=== PATIENT | female | born 1955 | race Caucasian/White ===

== ENCOUNTER → 2020-02-03 17:12 | Outpatient (CLI) | payer OTHER, SELFPAY ==
--- NOTE | ~2020-02-03 | MM_ITS ---
EXAMINATION: MM screening [facility] BI w madiha HISTORY: Screening mammogram TECHNIQUE: Craniocaudal and mediolateral oblique 3-D tomosynthesis images were obtained and synthetic 2-D images were generated. CAD analysis was submitted and interpreted. COMPARISON: 10/21/2018, 05/18/2017, 05/07/2016 bilateral digital screening mammogram examinations BREAST PARENCHYMAL COMPOSITION: There are scattered areas of fibroglandular density. FINDINGS: Stable circumscribed opacities consistent with benign intramammary lymph nodes on the left. There is no evidence of suspicious mass, calcification, or architectural distortion to suggest malig mikaela in either breast. There has been no suspicious interval change. IMPRESSION: 1. No mammographic evidence of malignancy. 2. Recommend routine screening mammography in one year. BI-RADS Category 2: Benign finding(s). Reviewed, dictated and finalized at location A. NERY SUPERINTENDENT
== END ==
PROVIDERS: Visit Provider Obstetrics & Gynecology
DX: Z12.31 Encounter for screening mammogram for malignant neoplasm of breast (principal)
CPT/HCPCS: 77063; 77067

== ENCOUNTER → 2021-04-28 11:17 | Outpatient (CLI) | payer OTHER, SELFPAY ==
--- NOTE | ~2021-04-28 | MM_ITS ---
EXAMINATION: MM screening [facility]i BI w madiha HISTORY: Screening mammogram TECHNIQUE: Craniocaudal and mediolateral oblique 3-D tomosynthesis images were obtained and synthetic 2-D images were generated. CAD analysis was submitted and interpreted. COMPARISON: 02/03/2020, 10/21/2018, 05/18/2017 bilateral screening mammogram examinations BREAST PARENCHYMAL COMPOSITION: There are scattered areas of fibroglandular density. FINDINGS: There is no evidence of suspicious mass, calcification, or architectural distortion to sugg est malignancy in either breast. There has been no suspicious interval change. IMPRESSION: 1. No mammographic evidence of malignancy. 2. Recommend routine screening mammography in one year. BI-RADS Category 1: Negative Reviewed, dictated and finalized at location A. D INSURANCE SALES MANAGER
== END ==
PROVIDERS: PCP Internal Medicine; Visit Provider Nurse Practitioner Obstetrics & Gynecology
DX: Z12.31 Encounter for screening mammogram for malignant neoplasm of breast (principal)
CPT/HCPCS: 77063; 77067

== ENCOUNTER → 2021-06-05 11:37 | Outpatient (CLI) | payer SELFPAY ==
--- NOTE | ~2021-06-05 | DEXA_ITS ---
Bone Density Report Name: PRABHU AHN Age: 65 Sex: Female Ethnicity: White Date of : 1955 Indication: osteopenia; monitoring treatment; hysterectomy; postmenopausal Referring Provider: Ashley, Val Hays Study: Bone densitometry was performed. Exam Date: June 05, 2021 Accession number: [id number] Bone Density: Region BMD T-score Z-score Classification AP Spine (L1-L4) 0.903 -1.3 0.4 Osteopenia Femoral Neck (Left) 0.571 -2.5 -1.0 Osteoporosis Total Hip (Left) 0.702 -2.0 -0.8 Osteopenia Femoral Neck (Right) 0.570 -2.5 -1.0 Osteoporosis Total Hip (Right) 0.713 -1.9 -0.7 Osteopenia Total Hip Mean 0.708 -2.0 -0.8 Osteopenia World Health Organization criteria for BMD impression classify patients as: Normal (T-score at or above -1.0), Osteopenia (T-score between -1.0 and -2.5), or Osteoporosis (T-score at or below -2.5). 10-year Fracture Risk: FRAX not reported because: Some T-score for Spine Total or Hip Total or Femoral Neck at or below -2.5 Treated for osteoporosis Previous Exams: Region Exam Age BMD T-score BMD Change BMD Change Date g/cm2 vs Baseline vs Previous AP Spine(L1-L4) 06/05/2021 65 0.903 -1.3 0.087* 0.105* 05/18/2017 61 0.798 -2.3 -0.017 -0.012 03/17/2013 57 0.810 -2.2 -0.006 -0.006 03/16/2011 55 0.816 -2.1 Total Hip(Left) 06/05/2021 65 0.702 -2.0 -0.005 0.020 05/18/2017 61 0.682 -2.1 -0.025 -0.005 03/17/2013 57 0.687 -2.1 -0.020 -0.020 03/16/2011 55 0.707 -1.9 Total Hip(Right) 06/05/2021 65 0.713 -1.9 -0.009 0.030* 05/18/2017 61 0.682 -2.1 -0.040* -0.003 03/17/2013 57 0.686 -2.1 -0.037* -0.037* 03/16/2011 55 0.722 -1.8 *Denotes significance at 95% confidence level, LSC for AP Spine = 0.022 g/cm2, LSC for Total Hip = 0.027 g/cm2 Clinical Information Provided by Patient: Is being treated for osteoporosis Has used the following medications: Actonel (i.e. risedronate), MTV Has the following medical conditions: Hysterectomy Patient maximum height was 65.0 Menopause Age: 31 No regular weight bearing exercise Does not regularly consume dairy products Drinks caffeinated beverages Onset of menses at age 14 Number of children 2 Impression: The patient has osteoporosis, based on the Left Femoral Neck T-score. No si
== END ==
PROVIDERS: PCP Internal Medicine; Visit Provider Nurse Practitioner Obstetrics & Gynecology
DX: M81.0 Age-related osteoporosis without current pathological fracture (principal); M85.852 Other specified disorders of bone density and structure, left thigh; M85.851 Other specified disorders of bone density and structure, right thigh; M85.88 Other specified disorders of bone density and structure, other site
CPT/HCPCS: 77080

== ENCOUNTER → 2022-07-18 13:44 | Outpatient (CLI) | payer OTHER, SELFPAY ==
--- NOTE | ~2022-07-18 | MM_ITS ---
EXAMINATION: MM screening [facility] BI w madiha HISTORY: Screening mammogram TECHNIQUE: Craniocaudal and mediolateral oblique 3-D tomosynthesis images were obtained and synthetic 2-D images were generated. CAD analysis was submitted and interpreted. COMPARISON: 04/28/2021, 02/03/2020, 10/21/2018 BREAST PARENCHYMAL COMPOSITION: There are scattered areas of fibroglandular density. FINDINGS: No suspicious mass, calcification, or architectural distortion are identified in either erwin ast to suggest malignancy. There has been no suspicious interval change. IMPRESSION: 1. No mammographic evidence of malignancy. 2. Recommend routine screening mammography in one year. BI-RADS Category 1: Negative Reviewed, dictated and finalized at location A.
== END ==
PROVIDERS: PCP Nurse Practitioner; Visit Provider Nurse Practitioner
DX: Z12.31 Encounter for screening mammogram for malignant neoplasm of breast (principal)
CPT/HCPCS: 77063; 77067

== ENCOUNTER 2022-09-07 13:14 | Emergency (ER) | payer OTHER, SELFPAY ==
[2022-09-07] VITALS (31 sets, daily range): BP systolic 149–185; BP diastolic 72–118; PULSE 83–115; RESP 14–26; TEMP 36.8; O2SAT 93–100
--- NOTE | ~2022-09-07 | CT_ITS ---
EXAMINATION: CT brain wo con DATE: 09/07/2022 16:26 INDICATION: Hypertension, lightheadedness . TECHNIQUE: Computed tomography (CT) of the head was performed without intravenous contrast. The mA wa s adjusted according to patient size. Iterative reconstruction technique was employed. The dose-lengt h product was 681.00 mGy-cm. COMPARISON: None. FINDINGS: No acute intracranial hemorrhage or extra-axial fluid collection. No hydrocephalus, mass, or herniation. No acute ischemic infarct. Unremarkable dural venous sinus attenuation. No acute osseous abnormality. Retention cyst/polyp in the right maxillary sinus, the remaining aerated spaces are clear. Mild atrophy and chronic white matter change. Atherosclerotic intracranial calcification. IMPRESSION: No acute intracranial process. Reviewed, dictated and finalized at location K.
--- NOTE | ~2022-09-07 | XR_ITS ---
EXAMINATION: XR chest 1V portable DATE: 09/07/2022 15:43 INDICATION: Hypertension. TECHNIQUE: A single frontal view of the chest was obtained. COMPARISON: None. FINDINGS: A calcified right lung nodule and calcified right hilar lymph nodes are consistent with old granulomatous disease. There is mild atelectasis in left lower lung zone. No pleural effusion or pne umothorax. The heart size is normal. IMPRESSION: 1. Mild atelectasis in left lower lung zone. Reviewed, dictated and finalized at location A.
--- NOTE | 2022-09-07 15:54 | ED.GENADULT ---
HPI - General Adult General Chief complaint: Recheck/Abnormal Lab/Rx Stated complaint: high blood pressure Time Seen by Provider: 09/07/22 15:11 History of Present Illness HPI narrative: 66-year-old female with history of hypertension presented the emergency department for evaluation of elevated blood pressure. Patient states that she did have follow-up with her primary care physician recently and they told her that her blood pressure was elevated. They did not make any medication changes at that time. Patient does take amlodipine valsartan . Patient reports that she has been intermittently checking her blood pressure and states that it often runs in the 120s to 130s but also was 150 systolic the other day. Patient reports that she does have some increased fogginess today but denies any chest pain shortness of breath nausea vomiting or abdominal pain. Related Data Allergies Allergy/AdvReac Type Severity Reaction Status Date / Time No Known Allergies Allergy Verified 08/30/22 09:35 Review of Systems Review of Systems: All systems reviewed & are unremarkable except as noted in HPI and below PMFSH Family History Family History (System 08/29/22 @ 11:24 by Ernie Antoine) Father Hypertension Family history of coronary artery disease Mother Hypertension Other Diabetes mellitus Social History Social History (Updated 08/30/22 @ 09:38 by Yennifer Lopez MA) Smoking packs per day: 0.75 Smoking cigarettes per day: 15.0 Years smoked: 10 Smoking pack-years: 7.50 Smoking status: Former smoker Tobacco type: cigarettes Second hand tobacco smoke exposure: No Alcohol intake: current Drinks per week: 10 Substance use: never Lack of Transportation: No Lack of Food: Never True Current Housing: I Have Housing Concerned About Future Housing: No Difficulty Paying Gas/Electric Bills: No Difficulty Paying for Meds: No Currently Unemployed: No Education: High School Diploma/GED Difficulty w/ Childcare or Family Care: No Exam Narrative: APPEARANCE: Well appearing, no pain, no distress, well-nourished. HEAD: normocephalic, atraumatic. EYES: PERRLA/EOMI, conjunctivae clear. NOSE: Normal no drainage NECK: Supple. No adenopathy, no masses. RESPIRATORY: Airway patent, respirations nonlabored. Clear to auscultation bilaterally, no rales, rhonchi, wheezing. CARDIOVASCULAR: Regular rate and rhythm without murmurs rubs or gallops. ABDOMINAL: Soft, nontender, nondistended, normal bowel sounds MUSCULOSKELETAL: Moves all extremities. Strength/ROM intact, No edema, No calf tenderness. NEURO: Alert. Cranial nerves II through XII intact. Grossly intact SKIN: Warm, dry. Normal Color Course Course Emergency Course: 66-year-old female presented ED for evaluation of elevated blood pressure. Patient was having elevated blood pressures at home of 190 systolic. Patient's blood pressure was better controlled in the ED. Patient states that she does have blood pressures that run in the 150s at home. Patient was encouraged to follow a low-sodium diet and to monitor blood pressures at home. Patient was also encouraged of close follow-up with her primary care physician to see if they want to further adjust her blood pressure medications. Patient was afebrile with no leukocytosis and a normal hemoglobin. Patient's electrolytes were within normal limits UA showed no evidence of proteinuria. Patient had negative head CT and a chest x-ray that showed no acute cardiopulmonary normality. EKG showed no evidence of ischemia. Vital Signs Vital signs: Vital Signs Temperature 98.3 F 09/07/22 13:21 Pulse Rate 115 H 09/07/22 13:21 Respiratory Rate 18 09/07/22 13:21 Blood Pressure 156/118 H 09/07/22 13:21 Pulse Oximetry 100 09/07/22 13:21 Oxygen Delivery Room Air 09/07/22 13:21 Temperature 98.3 F 09/07/22 13:21 Pulse Rate 87 09/07/22 17:45 Respiratory Rate 23 H 09/07/22 17:45 Blo
[2022-09-07] MEDS: hydrALAZINE HCL 20 MG/ML VIAL 10 MG IV PUSH (16:03)
[2022-09-07] MEDS: LORazepam INJ (*CRX) 2 MG/ML VIAL 0.5 MG IV PUSH (16:03)
[2022-09-07 16:11] LABS: Appearance Urine Clear (Clear); Bilirubin Urine Negative (Negative); Blood Urine Negative (Negative); Color Urine Yellow (Yellow); Glucose Urine UA Negative (Negative); Ketones Urine Negative (Negative); Leukocyte Esterase Ur Negative LEU/UL (Negative); Nitrate Urine Negative (Negative); Protein Urine Negative (Negative); Specific Grav Ur 1.004 (1.001-1.035); Urobilinogen Urine 0.2 mg/dL (<2.0)
[2022-09-07 16:21] LABS: Add Urine Microscopic? NO
[2022-09-07 16:23] LABS: Basophils Absolute Auto 0.1 K/mm3 (0.0-0.1); Basophils Percent Auto 1.1 % (0.2-1.2); Eosinophils Percent Auto 0.1 % (0-4.4); Hematocrit 37.3 % (37.0-47.0); Hemoglobin 12.5 g/dL (12.0-15.0); Immature Granulocyte Absolute 0.02 K/mm3 (0.00-0.031); Immature Granulocyte Percent A 0.3 % (0-0.5); Lymphocytes Absolute Auto 1.27 K/mm3 (0.9-3.2); Lymphocytes Percent Auto 16.9 % (18.3-44.2); Mean Corpuscular HGB Conc 33.5 g/dl (32-36); Mean Corpuscular Hemoglobin 29.9 pg (26-34); Mean Corpuscular Volume 89.2 fl (80-100); Mean Platelet Volume 9.3 fl (7.4-10.4); Monocytes Absolute Auto 0.8 K/mm3 (0.1-0.6); Monocytes Percent Auto 10.4 % (2.6-8.5); Neutrophils Absolute Auto 5.4 K/mm3 (1.3-6.7); Neutrophils Percent Auto 71.2 % (45.5-73.1); Platelet Count Result 381 k/mm3 (150-375); Red Blood Count 4.18 M/mm3 (4.2-5.4); Red Cell Distribution Width 16.5 % (11.5-14.5); White Blood Count 7.5 K/mm3 (4.5-10.0)
[2022-09-07 16:33] LABS: Alanine Aminotransferase 136 U/L (6-35); Albumin Level 5.2 g/dL (3.5-5.1); Alkaline Phosphatase 112 U/L (38-126); Anion Gap 9 mmol/L (8-16); Aspartate Amino Transferase 126 U/L (14-36); Bilirubin,Total 0.9 mg/dL (0.2-1.3); Blood Urea Nitrogen 8 mg/dL (7-17); Calcium 9.8 mg/dL (8.4-10.2); Carbon Dioxide 32 mmol/L (22-30); Chloride 97 mmol/L (98-107); Estimated CRCL calculation 102 ml/min; Estimated Glomerular Filt Rate > 60; Glucose 114 mg/dL (65-110); Magnesium 1.5 mg/dL (1.6-2.3); Potassium 3.4 mmol/L (3.4-5.0); Sodium 138 mmol/L (137-145)
[2022-09-07] MEDS: METOPROLOL TARTRATE INJ 5 MG/5 ML VIAL IV PUSH (16:42)
== END 2022-09-07 17:59 | disposition home or self-care (01) ==
PROVIDERS: Emergency Provider Emergency Medicine; PCP Family Medicine
DX: I10 Essential (primary) hypertension (principal); Z87.891 Personal history of nicotine dependence
CPT/HCPCS: 36415; 70450; 71045; 80053; 81003; 83735; 84443; 85025; 96374; 96375; 99284; J0360; J2060

== ENCOUNTER 2023-05-28 08:38 | Outpatient (CLI) | payer OTHER, SELFPAY ==
--- NOTE | ~2023-05-28 | XR_ITS ---
EXAMINATION: XR thoracic spine 2V DATE: 05/28/2023 09:21 INDICATION: Thoracic back pain TECHNIQUE: AP, lateral and lateral swimmer's views of the thoracic spine were obtained. COMPARISON: None. FINDINGS: There are 11 degrees of lower thoracic levoscoliosis. Bone alignment is normal. There is no fracture. There is moderate loss of intervertebral disc space height at multiple levels in the thora cic spine. The vertebral body heights are maintained. There is severe mid cervical spondylosis. Small degenerative osteophytes project from the anterior endplates of multiple vertebral bodies. IMPRESSION: 1. Moderate thoracic spondylosis without acute findings. Reviewed, dictated and finalized at location F.
--- NOTE | ~2023-05-28 | XR_ITS ---
XR_CERV2-3V_CR 05/28/2023 09:21 Indication: Cervicalgia Procedure: 3 views cervical spine Comparison: 04/24/2006 Findings: Straightening of cervical lordosis. There is disc narrowing and endplate degenerative juan e at C4-5, C5-6 and C6-7. There is multilevel uncinate and facet hypertrophy. Odontoid process is nor mal. No prevertebral soft tissue swelling. Lung apices are normal. Impression: 1: Severe cervical spondylosis. Reviewed, dictated and finalized at location L. Impression: 1: Severe cervical spondylosis.
--- NOTE | ~2023-05-28 | XR_ITS ---
XR lumbar spine 2-3V 05/28/2023 09:21 Indication: Low back pain Procedure: 3 views lumbar spine Comparison: No prior studies for comparison. Findings: Mild dextrocurvature of the lumbar spine. There is disc narrowing at all lumbar levels. The re is facet hypertrophy at L4-5 and L5-S1. No fracture or traumatic malalignment. No evidence for spo ndylolisthesis. Impression: 1: Severe lumbar spondylosis. Reviewed, dictated and finalized at location L. Impression: 1: Severe lumbar spondylosis.
== END 2023-05-28 08:39 ==
PROVIDERS: PCP Nurse Practitioner Family; Visit Provider Nurse Practitioner Family
DX: M43.04 Spondylolysis, thoracic region (principal); M43.02 Spondylolysis, cervical region; M43.06 Spondylolysis, lumbar region
CPT/HCPCS: 72040; 72070; 72100

== ENCOUNTER 2023-07-18 09:30 | Outpatient (RCR) | payer OTHER, SELFPAY ==
--- NOTE | 2023-06-21 12:02 | OPREHPOC ---
Outpatient Therapy Plan of Care This is a Multidisciplinary Plan of Care that may contain components documented by all disciplines (PT, OT, and ST.) PT Problem 1 PT Problem #1 Knowledge Deficit PT Goal 1 Goal *indep with HEP Target Visit 8 PT Problem 2 PT Problem #2 Pain PT Goal 1 Goal 1* cervical pain rating at worst of 3/10 2* report NO awakening from sleep due to neck pain 3* self rating Neck Disability Index score of 5% limitation in activity level Target Visit 8 PT Problem 3 PT Problem #3 Impaired Range of Motion PT Goal 1 Goal increase ROM to improve ability to drive and home /self care activities 1* active cervical rotation R 55' 2* active cervical rotation L 55' no pain increase reported with 3 reps active 3* cervical rotation R 4* cervical rotation L 5* L shoulder flexion to 90' 6* L shoulder abduction to 90' Target Visit 8
--- NOTE | 2023-06-21 12:02 | PTOPEVAL1 ---
Assessment and note entered by Allison Mejia PT Evaluation Information Assessment Status Evaluation Diagnosis cervical and lumbar pain Onset Mar 2023 Subjective Information orders for cervical and lumbar treatment--pt reports more issues with neck, so will begin with cervical treatment; gradual increase in neck pain, without injury or trauma to neck; more issues with sleeping and driving; problems with L shoulder; is R handed. x ray report states: severe cervical spondylosis have never had PT in the past; Activity: retired; active--do home and yard work do not do regular fitness exercises; prior to COVID-- did regular fitness classes and hot yoga; hopes to get better and return to yoga and fitness exercises; Reported Pain Level Pain Score Self Report Additional Pain Score Comments pain range in the past week: 3-5/10; tight in neck, base of neck, upper back; neck pops and cracks when move head; pain in L shoulder with decreased motion and pain with moving; intermittent both elbows hurt/ tingle or on fire; intermittent pain behind L ear; no headaches; pain increase: walking dog and dog pulls; turning head with driving; pain decrease: new script for gabapentin, is helping; have not been using heat/ice to neck- instruct on PRN use; with sleeping- awaken due to pain at least 1x/ night; Assessment PT Clinical Summary Janeen has the diagnosis of cervical and lumbar pain. She wants to start treatment on her neck. Neck Disability Index rating of 10% limitation in activity--turning her head, sleeping and walking the dog are most disrupted. She also has L shoulder pain. With the evaluation: decreased cervical rotation to R and L with pain, muscle spasms and tenderness throughout cervical and upper traps; L shoulder with pain and decreased
--- NOTE | 2023-07-18 11:11 | OPREHPOC ---
Outpatient Therapy Plan of Care This is a Multidisciplinary Plan of Care that may contain components documented by all disciplines (PT, OT, and ST.) PT Problem 1 PT Problem #1 Knowledge Deficit PT Goal 1 Goal *indep with HEP Target Visit 8 Progress Met PT Problem 2 PT Problem #2 Pain PT Goal 1 Goal 1* cervical pain rating at worst of 3/10 2* report NO awakening from sleep due to neck pain 3* self rating Neck Disability Index score of 5% limitation in activity level Target Visit 8 Progress Met PT Problem 3 PT Problem #3 Impaired Range of Motion PT Goal 1 Goal increase ROM to improve ability to drive and home /self care activities 1* active cervical rotation R 55' 2* active cervical rotation L 55' no pain increase reported with 3 reps active 3* cervical rotation R 4* cervical rotation L 5* L shoulder flexion to 90' 6* L shoulder abduction to 90' Target Visit 8 Progress Partially Met
--- NOTE | 2023-07-18 11:11 | PTOPDC ---
Assessment and note entered by Hadley Vera, PT Evaluation Information Assessment Status Discharge Diagnosis cervical and lumbar pain Onset Mar 2023 Subjective Information Patient reports that overall she is a lot better since she started, especially in her cervical spine and shoulders. Reports that her back and hips are still a little sore but feels she has a better understanding of what she needs to do to continue to improve his as part of HEP. Would like to be discharged at this time. Reported Pain Level Pain Score 3: Self Report Assessment PT Clinical Summary Patient met all current goals for therapy. She is independent with HEP and will benefit from continuation of HEP to address remaining deficits. Plan of Care PT Services Indicated D/c to HEP
== END 2023-07-19 11:54 | disposition home or self-care (01) ==
LOC: ANHPT 09:30
PROVIDERS: PCP Nurse Practitioner Family; Visit Provider Nurse Practitioner Family
DX: M47.812 Spondylosis without myelopathy or radiculopathy, cervical region (principal); M47.816 Spondylosis without myelopathy or radiculopathy, lumbar region
CPT/HCPCS: 97014; 97110; 97140; 97162; 97530; G0283

== ENCOUNTER 2023-10-24 15:26 | Outpatient (CLI) | payer OTHER, SELFPAY ==
--- NOTE | ~2023-10-24 | MM_ITS ---
EXAMINATION: MM screening franci BI w madiha HISTORY: Screening TECHNIQUE: Craniocaudal and mediolateral oblique 3-D tomosynthesis images were obtained and synthetic 2-D images were generated. CAD analysis was submitted and interpreted. COMPARISON: Comparison to multiple prior studies sequentially, with oldest reviewed study dated 08/2016. BREAST PARENCHYMAL COMPOSITION: Not dense: There are scattered areas of fibroglandular density. FINDINGS: There is no evidence of suspicious mass, calcification, or architectural distortion to sugg est malignancy in either breast. There has been no suspicious interval change. IMPRESSION: 1. No mammographic evidence of malignancy. 2. Recommend routine screening mammography in one year. BI-RADS Category 1: Negative Reviewed, dictated and finalized at location B.
== END 2023-10-24 15:27 ==
LOC: MICIMG 15:27
PROVIDERS: PCP Nurse Practitioner Family; Visit Provider Nurse Practitioner Family
DX: Z12.31 Encounter for screening mammogram for malignant neoplasm of breast (principal)
CPT/HCPCS: 77063; 77067

== ENCOUNTER 2023-12-09 00:21 | Day surgery (SDC) | payer OTHER, SELFPAY ==
[2023-11-27 14:57] VITALS: BMI 24.2
[2023-12-09 13:36] VITALS: BP 172/87; PULSE 83; RESP 20; TEMP 36.1; O2SAT 100; BMI 22.0
[2023-12-09] MEDS: LACTATED RINGERS 1,000 ML 150 ML IV CONT (13:47)
--- NOTE | 2023-12-09 14:02 | WPDANESEPPF ---
Anes - Initial Pre Proc Eval Procedure: Operation Date: 12/09/23 15:00 Proposed Procedures p Esophagogastroduodenoscopy - Charles Botello MD Date/Time: 12/09/23 14:02 Surgeon: Charles Botello MD Pre Op Diagnosis: Melena Patient Data Age: 68 Gender: F Height: 1.65 m Weight: 60.1 kg Last Vital Signs Temp 36.1 C L 12/09/23 13:36 Pulse 83 12/09/23 13:36 Resp 20 12/09/23 13:36 BP 172/87 H 12/09/23 13:36 Pulse Ox 100 12/09/23 13:36 O2 Del Method Room Air 12/09/23 13:36 Allergies Allergy/AdvReac Type Severity Reaction Status Date / Time No Known Allergies Allergy Verified 12/09/23 13:34 Home Medications Medication Instructions Recorded Confirmed Type gabapentin 300 mg capsule 300 mg PO DAILY PRN Pain 11/27/23 12/09/23 History amlodipine 10 mg-valsartan 320 mg See Rx Instructions .Route 11/28/23 12/09/23 Rx tablet .COMPLEX #90 tabs Patient hx anesthesia problems: none Family hx anesthesia problems: none Results Review: All pre-operative results and documents have been reviewed as part of the pre-operative evaluation. [facility] Past Medical History Medical History Cervicalgia Contact dermatitis Elevated liver enzymes Essential (primary) hypertension Hyperlipidemia Impaired glucose tolerance Lumbago On local intermodal truck driver drug therapy Osteoporosis Screening mammogram for breast cancer Swelling of joint of multiple sites Family History Family History Father Hypertension Family history of coronary artery disease Mother Hypertension Other Diabetes mellitus Social History Social History (Updated 12/09/23 @ 14:02 by Eric Mccullough MD) Smoking packs per day: 0.75 Smoking cigarettes per day: 15.0 Years smoked: 10 Smoking pack-years: 7.50 Smoking status: Former smoker Tobacco type: cigarettes Second hand tobacco smoke exposure: No Alcohol intake: current Drinks per week: 7 Alcohol use details: Glass of wine nightly Substance use: never Substance use type: does not use Lack of Transportation: No Lack of Food: Never True Current Housing: I Have Housing Concerned About Future Housing: No Difficulty Paying Gas/Electric Bills: No Difficulty Paying for Meds: No Currently Unemployed: No Education: High School Diploma/GED Difficulty w/ Childcare or Family Care: No Living arrangements: alone Spiritual care concerns: No Anes - Eval Final PreProcedure Day of Procedure 12/09/23 14:02 Patient weight: normal Heart: regular rate and rhythm Lungs: clear to auscultation Airway: Mallampati scale class II Neurological: alert and oriented Last oral intake: >/= 8 hours ASA classification: II Emergent: no Anesthetic plan: proceed Anesthesia type and monitoring: general GIVS and standard monitoring Results Review: All pre-operative results and documents have been reviewed as part of the pre-operative evaluation. Informed Consent: The patient's anesthetic plan and its attendant risks and benefits were discussed with the patient/family/POA. Questions were solicited and answers provided to the satisfaction of the patient/family/POA.
--- NOTE | 2023-12-09 14:40 | PM.HPGS ---
History of Present Illness History of Present Illness Consent: Risks, benefits, and alternatives have been discussed and questions answered. Patient agrees to proceed with procedure. Chief complaint: Melena Narrative: Amy Perry is a 68 year old female with dark stools and mild epigastric pain, never had egd. Recent h/h normal. Review of Systems Review of Systems: All systems reviewed & are unremarkable except as noted in HPI and below PMFSH Past Medical History Medical History Cervicalgia Contact dermatitis Elevated liver enzymes Essential (primary) hypertension Hyperlipidemia Impaired glucose tolerance Lumbago On half-way drug therapy Osteoporosis Screening mammogram for breast cancer Swelling of joint of multiple sites Family History Family History Father Hypertension Family history of coronary artery disease Mother Hypertension Other Diabetes mellitus Social History Social History (Updated 12/09/23 @ 14:02 by Eric Mccullough MD) Smoking packs per day: 0.75 Smoking cigarettes per day: 15.0 Years smoked: 10 Smoking pack-years: 7.50 Smoking status: Former smoker Tobacco type: cigarettes Second hand tobacco smoke exposure: No Alcohol intake: current Drinks per week: 7 Alcohol use details: Glass of wine nightly Substance use: never Substance use type: does not use Lack of Transportation: No Lack of Food: Never True Current Housing: I Have Housing Concerned About Future Housing: No Difficulty Paying Gas/Electric Bills: No Difficulty Paying for Meds: No Currently Unemployed: No Education: High School Diploma/GED Difficulty w/ Childcare or Family Care: No Living arrangements: alone Spiritual care concerns: No Meds Home Medications and Allergies Home Medications Medication Instructions Recorded Confirmed Type gabapentin 300 mg capsule 300 mg PO DAILY PRN Pain 11/27/23 12/09/23 History amlodipine 10 mg-valsartan 320 mg See Rx Instructions .Route 11/28/23 12/09/23 Rx tablet .COMPLEX #90 tabs Allergies Allergy/AdvReac Type Severity Reaction Status Date / Time No Known Allergies Allergy Verified 12/09/23 13:34 Vital Signs Vital Signs - 24 hr 12/09/23 13:36 Temperature 97 F L Pulse Rate 83 Respiratory Rate 20 Blood Pressure 172/87 H Pulse Oximetry 100 Oxygen Delivery Room Air Exam Const: General: comfortable and no acute distress HENMT: Face/Nose/Sinus: Normal nares present Eyes: General: appearance normal, both eyes and all related structures Neck: Neck: no JVD Resp: Auscultation: clear to auscultation bilaterally Cardio: Rate: regular rate Rhythm: regular rhythm GI: Inspection: non-distended GI Palp: Yes Soft to palpation Skin: General skin exam: normal color Neuro: General: gait normal Speech: normal speech Extrem: General: normal to inspection Psych: Mental Status: mental status grossly normal Assessment and Plan Assessment and plan (1) Black tarry stools: Code(s): K92.1 - Melena Status: Acute Assessment and Plan: egd
[2023-12-09 14:53] VITALS: BP 122/74; PULSE 94; RESP 19; O2SAT 100
[2023-12-09 15:03] VITALS: BP 130/73; PULSE 78; RESP 19; O2SAT 100
[2023-12-09 15:13] VITALS: BP 141/76; PULSE 76; RESP 18; O2SAT 100
== END 2023-12-09 15:25 | disposition home or self-care (01) ==
PROVIDERS: PCP Nurse Practitioner Family; Referring Provider Nurse Practitioner Family; Visit Provider Internal Medicine Gastroenterology
PROC: 0DJ08ZZ Inspection of Upper Intestinal Tract, Via Natural or Artificial Opening Endoscopic (ICD-10-PCS; CPT 43235; principal; 2023-12-09 15:00)
DX: R10.13 Epigastric pain (principal); K92.1 Melena; I10 Essential (primary) hypertension; E78.5 Hyperlipidemia, unspecified; R73.02 Impaired glucose tolerance (oral); M81.0 Age-related osteoporosis without current pathological fracture; Z79.899 Other long term (current) drug therapy; Z87.891 Personal history of nicotine dependence; Z82.49 Family history of ischemic heart disease and other diseases of the circulatory system
CPT/HCPCS: 43239; 88305; J2003; J2704; J7120

== ENCOUNTER 2024-04-17 13:22 | Outpatient (CLI) | payer OTHER, SELFPAY ==
--- NOTE | ~2024-04-17 | DEXA_ITS ---
Bone Density Report Name: PRABHU AHN Age: 68 Sex: Female Ethnicity: White Date of : 1955 Indication: postmenopausal; screening for osteoporosis; hysterectomy; Referring Provider: YT TEAGUE Study: Bone densitometry was performed. Exam Date: April 17, 2024 Accession number: [id number] Bone Density: Region BMD T-score Z-score Classification AP Spine(L1-L4) 0.922 -1.1 0.8 Osteopenia Femoral Neck (Left) 0.580 -2.4 -0.8 Osteopenia Total Hip (Left) 0.722 -1.8 -0.4 Osteopenia Femoral Neck (Right) 0.576 -2.5 -0.8 Osteoporosis Total Hip (Right) 0.716 -1.9 -0.5 Osteopenia Total Hip Mean 0.719 -1.9 -0.5 Osteopenia World Health Organization criteria for BMD impression classify patients as: Normal (T-score at or above -1.0), Osteopenia (T-score between -1.0 and -2.5), or Osteoporosis (T-score at or below -2.5). 10-year Fracture Risk: FRAX not reported because: Some T-score for Spine Total or Hip Total or Femoral Neck at or below -2.5 Clinical Information Provided by Patient: Has used the following medications: Vitamin D, Calcium Has the following medical conditions: Hysterectomy Patient maximum height was 66 Menopause Age: 31 Drinks caffeinated beverages Onset of menses at age 14 Number of children 2 Impression: The patient has osteoporosis, based on the Right Femoral Neck T-score. Discussion: INCREASED RISK OF FRACTURE. BONE DENSITY IS UNDESIRABLY LOW AT ONE OR MORE SKELETAL SITES, CONSISTENT WITH POSTMENOPAUSAL OSTEOPOROSIS. This patient's lowest T-score meets the World Health Organization's (WHO) criteria for osteoporosis at one or more sites (T-score -2.5 or below). In untreated patients, the risk of osteoporotic fracture increases approximately two-fold for each 1.0 SD decrease in T-score. Low bone density is not the only risk factor for fracture; also consider factors such as patient's age, frailty or poor health, risk of falling, risk of injury, previous osteoporotic fracture, family history of osteoporosis, cigarette smoking, low body weight, etc. Not everyone with low bone mineral density has osteoporosis; osteomalacia and other metabolic bone disorders should also be considered. Patients who have osteoporosis should be evaluated for specific diseases and conditions (secondary causes) that may cause or contribute to bone loss. The [place] Association of Clinical Endocrinologists (AACE) and National Osteoporosis Foundation (NOF) recommend pharmacologic intervention for all postmenopausal women whose T-score is in this range. The patient should follow a healthful lifestyle (good nutrition with adequate calcium and vitamin D, and appropriate weight-bearing exercise). Follow-Up: Consider a repeat BMD and Vertebral Fracture Assessment (VFA) exam in 2 years or sooner if medically necessary, to reassess this patient's status. Reported by: LINCOLN on 04/17/2024 1:48:00 PM. Reviewed, dictated and finalized at location A.
--- OUTSIDE RECORDS SUMMARY | 2024-04-17 13:30 | XMS_ITS | Data Portability ---
Author Organization [facility] [place] Address [address] [place] [address] Care Team Providers Care Guitar Teacher Name Role Phone REI RUFF Primary Care Provider Assessment Encounter Date Assessment Date Assessment LastModified by Organization Details LastModified Time 09/24/2020 09/24/2020 Annual gynecological exam performed. Patient will come back in a year unless there are new symptoms. [email or web address] Not available 09/24/2020 10:16:45 Plan of Treatment Reminders Order Date Submit Date Provider Last Modified By Organization Details Last Modified Time Details Appointments None recorded. Lab None recorded. Referral None recorded. Procedures None recorded. Surgeries None recorded. Imaging DEXA, axial skeleton + vertebral fracture assessment 2020 021 [facility], [address], [place], [address], 16:38:43 Medication Orders None recorded. Patient TargetsNo targets recorded. Patient InstructionsNo instructions recorded. Reason for Referral None Reported. Results Created Date Observation Date Name Description Value Unit Range Abnormal Flag Note LastModifiedBy Organization Detail LastModifiedTime 04/28/1904/28/2021 MAMMO , scree ramesh, bilat eral No observ ation record ed. [facility] [address], [place], [address], 05/03/2021 17:08:36 06/24/19 22 DEXA, axial skele ton + verte bral fract ure asses sment No observ ation record ed. [facility] [address], [place], [address], 07/14/2021 11:40:03 Result Notes None recorded. Problems Name Problem SNOMED Code Status Onset Date Resolution Date Notes Provider Name and Address Organization Details Recorded Time Screening for malignant neoplasm of rectum Active 2016 Encounter for screening for malignant neoplasm of rectum;Rec orded Elsewhere: No Locatio n: [facility] rce: EHR Chroni c: N Practice ID: 0001 Billa ble Time: 08:30:00 AM Not Available [facility] 0 21:17:11 Specializ ed medical examinati on Active 2012 Gynecologi leonora Examinatio n;Recorded Elsewhere: No Locatio n: [facility] rce: EHR Chroni c: N Practice ID: 0001 Billa ble Time: 08:15:00 AM Not Available [facility] 0 21:17:[address] Concept Active 2019 Encntr for general adult medical exam w/o abnormal findings;R ecorded Elsewhere: No Locatio n: [facility] rce: EHR Chroni c: N Practice ID: 0001 Billa ble Time: 08:15:00 AM Not Available [facility] 0 21:17:11 Screening for malignant neoplasm of cervix Active 2010 Pap Smear;Prac conner ID: 0001 Not Available [facility] 0 21:17:12 Atypical squamous cells of undetermi tommie significa nce on cervical Papanicol aou smear 764000239 Active 2010 Pap Abnormal ASCUS;Prac conner ID: 0001 Not Available [facility] 0 21:17:12 test negative [id number] Active 2010 Negative Test;Pract ice ID: 0001 Not Available [facility] 0 21:17:12 Adult health examinati on Active 2012 Routine general medical examinatio n at a health care facility;Lis judge ID: 0001 Not Available [facility] 0 21:17:[address] Concept Active 2016 Encntr for lathe set up person exam (general) (routine) w/o abn findings;P ractice ID: 0001 Not Available [facility] 0 21:17:13 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, high risk on cervical specimen 162991523 Active 2016 Cervical high risk HPV DNA test positive;P ractice ID: 0001 Not Available [facility] 0 21:17:13 Osteoporo sis 09586106 Active 2017 Age-relate d osteoporos is w/o current pathologic al fracture;P ractice ID: 0001 Not Available [facility] 0 21:17:13 Evaluatio n finding Active 2017 Unsp abnormal cytolog findings in specmn from cervix uteri;Jarad rded Elsewhere: No Locatio n: [facility] rce: EHR Chroni c: N Practice ID: 0001 Billa ble Time: 08:30:00 AM Not Available [facility] 0 21:17:15 Problem Notes None recorded. Procedures Surgical History Date Name Laterality Status Provider Name and Address Organization Details Recorded Time 09/07/18 87 [facility]10[facility]2020 15:37:39 03/04/18 87 [facility] 10/10/2020 15:39:50 Imaging Results Imaging Date Name Status LastModified by Organiz ation Details LastModified Time 04/28/2021 MAMMO, screening, bilateral active [facility] [address], [place], [address], 05/03/2021 17:08:36 06/23/2021 DEXA, axial skeleton + vertebral fracture assessment completed [facility] [address], [place], [address], 07/14/2021 11:40:03 Procedure Notes None recorded. Medical Equipment None Reported. Allergies No known drug allergies Medications Name Sig Start Date Stop Date Status Note LastModified by Organization Details LastModified Time Mobic 7.5 mg tablet take 2 tablet by oral route every day 05/07 completed Prescribe d Elsewhere : No Locati on: [facility] Mo dify By: sheldon fiore DateTime: 8 08:15:00 AM Not Available Not Available Not Available buspirone 15 mg tablet take 1 tablet by oral route 2 times every day 05/07 completed Prescribe d Elsewhere : No Locati on: [facility] Mo dify By: jose menoner DateTime: 8 08:15:00 AM Not Available Not Available Not Available Exforge 10 mg-160 mg tablet take 1 tablet by oral route every day active Prescribe d Elsewhere : Yes Locat ion: [facility] Mo dify By: loyda kincaid DateTime: 1 05:45:00 PM Not Available Not Available Not Available risedrona te 150 mg tablet TAKE 1 TABLET BY MOUTH ONCE A MONTH. TAKE 30 MIN BEFORE FIRST MEAL WITH FULL GLASS OF WATER active Not Available Not Available No t Available Vitals Date Recorded Body height Body mass index (BMI) Body weight Systolic blood pressure Diastolic blood pressure Provider Name and Address Organization Details Last Updated DateTime 09/24/2020 163.83 cm 20.1 kg/m2 02484.49 g 120 mm[Hg] 76 mm[Hg] Viviana Trejo [facility] 10:17:01 Social History Question Answer Notes LastModified by Organizat ion Details LastModified Time Tobacco Smoking Status Former Smoker Viviana Trejo null, [facility] 10/10/2020 15:37:06 What Is Your Level Of Alcohol Consumption? Occasional Information not available 10/10/2020 Are You Blind Or Do You Have Difficulty Seeing? No [email or web address] Information not available 10/10/2020 What Is Your Level Of Caffeine Consumption? Occasional [email or web address] Information not available 10/10/2020 In The 14 Days Before Symptom Onset, Have You Had Close Contact With A [facility] COVID-19 While That Case Was Ill? No [email or web address] Information not available 10/10/2020 In The 14 Days Before Symptom Onset, Have You Had Close Contact With A Person Who Is Under Investigation For COVID-19 While That Person Was Ill? No [email or web address] Information not available 10/10/2020 Have You Been To An Area Known To Be High Risk For COVID-19? No [email or web address] Information not available 10/10/2020 Are You Deaf Or Do You Have Serious Difficulty Hearing? No Information not available 10/10/2020 What Type Of Diet Are You Following? REGULAR [email or web address] Information not available 10/10/2020 Have You Ever Been Counseled For Unhealthy Alcohol Use? No [email or web address] Information not available 10/10/2020 Do You Use Your Seat Belt Or Car Seat Routinely? Yes [email or web address] Information not available 10/10/2020 Do You Have Smoke And Carbon Monoxide Detectors In Your Home? Yes [email or web address] Information not available 10/10/2020 Do You Feel Stressed (tense, Restless, Nervous, Or Anxious, Or Unable To Sleep At Night)? [id number] [email or web address] Information not available 10/10/2020 Do You Use Any Illicit Or Recreational Drugs? No [email or web address] Information not available 10/10/2020 Do You Use Sunscreen Routinely? Yes [email or web address] Information not available 10/10/2020 Has Tobacco Cessation Counseling Been Provided? No [email or web address] Information not available 10/10/2020 Do You Or Have You Ever Used Any Other Forms Of Tobacco Or Nicotine? No [email or web address] Information not available 10/10/2020 Sex: Unknown Functional Status Question Answer Note LastModified by Organizat ion Details LastModified Time Are you able to walk? YESWOREST [email or web address] Information not available 10/10/2020 What is your exercise level? Occasional Information not available 10/10/2020 Mental Status None recorded. Family History Relationship Description Onset Age of this Age Resolved Age Notes LastModified by Organization Details LastModified Time Father Hypertensive disorder [email or web address] Not available 10/10 15:35:55 Mother Hypertensive disorder [email or web address] Not available 10/10 15:35:55 Sister Hypertensive disorder [email or web address] Not available 10/10 15:35:55 Medical History Condition Response Allergies (Food, seasonal, environmental ) N Other Y Breast Cancer N Drug/Latex Allergies/Reactions N Blood Transfusion N Lung Disease N Dermatologic Disorders N Defects or Inherited Disease N Breast Problem N Gestational Diabetes N Hematologic disorders N Anesthesia Complications N History of STI Y Deep Vein Thrombosis N Polycystic ovary syndrome N Anxiety Disorder Y Autoimmune disease N Arthritis N Polyps N Infertility N History of abnormal pap Y Acid Reflux (GERD) N Cancer N Varicosities N Stroke N Neurologic/Epilepsy N Endometriosis N High Cholesterol N Fibromyalgia N Headaches N Kidney Disease N Heart Problems N Kidney or Bladder Problems N Thyroid Problems N GI Problems N Eating Disorder N Anemia N Art (IVF or FET) N Psychiatric Illness N Ovarian Cancer N Diabetes N Pulmonary (TB, Asthma) N Hepatitis/Liver Disease N No Past Medical History N Eczema N Urinary Tract Infection N Abuse/Domestic Violence N Asthma N Trauma/Violence N Depression/ depression Y Heart Disease N Pre-Eclampsia N Hypertension Y Osteoporosis Y Thrombophilias N Gynecological History Statement/Question Response STIs/STDs Y Date of Last Pap Smear Current Control Method Hysterectom y Date of Last Mammogram Obstetrics History GPAL:G 2 P 2 0 0 2 Type Value Full Term 2 Living 2 Total 2 Past Encounters Encounter ID Performer Location Encounter Start Date Encounter Closed Date Diagnosis/Indication Diagnosis SNOMED-CT Code Diagnosis ICD10 Code [id number] [address] [address] 09/24/2020 09:48:23 09/24/2020 12:52:15 Gynecologic examination 21480978 Z01.419 Take Calcium with Vitamin D 12-1500mg daily. Do monthly self breast exams. It is advised to get annual flu shot in the fall and she could obtain at [facility] or [facility] care clinic. If you haven't received the Tdap vaccine in the last 10 years you should obtain one as well. Have mammogram yearly, bone density every 2-3 years and colonoscop y every 5-10 years depending on findings and history. Engage in daily exercise of low impact aerobic exercise 45-60 minutes 4-5 times weekly. Avoid tobacco and illicit drugs as well as using moderation with alcohol intake less than 1-2 8 oz beverages daily. This lifestyle behavior pattern will lead to less health conditions and longer life span. If BMI greater than 25 weight watchers or dietary consult advised. Questions have been answered. Patient appears to understand instructio ns, but if you have any further questions call or respond to this email Pap/hpv 2018 [facility]US HR HPV+Pap 2019 negPap/hpv 2020 negPap/hpv due next year per asccp unless otherwise indicatedm ammo orderedDex a ordered--w ill await results & decide if needs to continue current Pharm Medication or take break; recommend [employer] brand bone up and daily maintenanc e mamadou DManny Weight bearing resistance training.C Marcie PCP managed.De cassidy std screen Postmenopa usal osteopenia [id number] M85.80 Health Concerns Section Related Observation LastModified by Organization Detai ls LastModified Time None Recorded Concern Status LastModified by Organization Details LastModified Time None Recorded Advance Directives Directive None Recorded Payers Encounter Date Sequence Insurance Name Policy Number Policy Pantoja Covered Member ID Pantoja Member ID Guarantor Name 09/24/2020 1 [employer] - CHOICE (POS II) [id number] Amy Perry [id number] Amy Perry Notes Date Note Type Note Provider Name and Address Organization Details Recorded Time 09/24/2020 text/html Annual Athletic Director Post-MenopausalRe ported bypatient.Menopau james Symptoms:no menopausal symptoms; normal vaginal lubrication Vaginal Bleeding:history of menopause having occurred; no history of post menopausal bleeding Urinary Symptoms:no hematuria; no incontinence; no nocturia; no urinary frequency Vulva:no genital lesion; no vulvar atrophy Vagina:normal vaginal discharge; no vaginal atrophy Breast:no breast lump; no nipple discharge; no breast pain Sexual Complaints:no sexual complaints Psychological Symptoms:no depression; no anxiety Preventive Measures:encourag e regular mammograms starting age 40; encourage self breast examination; encourage regular exercise; encourage no tobacco use; mammogram performed within the past year; history of recent colonoscopy; needs to schedule bone density Partial Hysterectomy: still has cervix (non-cancer indications) Val Ramirez, [facility]- [address], [place], [address], [facility] 09/24/2020 10:42:46 OBGyn Episode Ob Episode Information Episode Created Date Number of Fetuses Patient Bloodtype Patient rh Status Prepregnancy Weight lbs Domestic Partner Domestic Partner Phone Father Name Auto Roller Status 10/11/19 21 1 CLOSED Fetus Data First Name Last Name Admitted to NICU Weight (g) Sex Living Outcome Pediatric Complications Fetus ID Race Codes Race Delivery Type 3089.86 [id number] Full Term [id number] Vaginal Delivery Vinod Calculation Initial Vinod Date Initial Exam Date Initial Exam Provider Initial Ultrasound Date Last Menstrual Period Date Ultra Sound Weeks Gestation 0 Eighteen To Twenty Week Vinod Update Ultra Sound Date Fundal Height At Umbil Quickening Date Ultra Sound Latest Weeks Gestation Final Vinod Confirmed By Final Vinod Confirmed Date Final Vinod Date Ultra Sound Latest Days Gestation 0 0 Menstrual History Last Menstrual Date Menses Monthly On Bcp Conception Prior Menses Frequency Hcg Plus Date Menarche Onset Age Delivery Information Delivery Date Delivery Type Labor Anesthesia Weeks Gestation Incision Type Labor Labor Length Hrs Delivered By Post Complications Tubal Sterilization Discharge Date Comments 5 40 Discharge Information Feeding Method Contraceptive Method Maternal HG B and HCT Levels Ob Episode Information Episode Created Date Number of Fetuses Patient Bloodtype Patient rh Status Prepregnancy Weight lbs Domestic Partner Domestic Partner Phone Father Name Auto Roller Status 10/11/19 21 1 CLOSED Fetus Data First Name Last Name Admitted to NICU Weight (g) Sex Living Outcome Pediatric Complications Fetus ID Race Codes Race Delivery Type 3713.55 [id number] F Full Term [id number] Primary Vinod Calculation Initial Vinod Date Initial Exam Date Initial Exam Provider Initial Ultrasound Date Last Menstrual Period Date Ultra Sound Weeks Gestation 0 Eighteen To Twenty Week Vinod Update Ultra Sound Date Fundal Height At Umbil Quickening Date Ultra Sound Latest Weeks Gestation Final Vinod Confirmed By Final Vinod Confirmed Date Final Vinod Date Ultra Sound Latest Days Gestation 0 0 Menstrual History Last Menstrual Date Menses Monthly On Bcp Conception Prior Menses Frequency Hcg Plus Date Menarche Onset Age Delivery Information Delivery Date Delivery Type Labor Anesthesia Weeks Gestation Incision Type Labor Labor Length Hrs Delivered By Post Complications Tubal Sterilization Discharge Date Comments 7 40 Discharge Information Feeding Method Contraceptive Method Maternal HG B and HCT Levels
--- OUTSIDE RECORDS SUMMARY | 2024-04-17 13:30 | XMS_ITS | Referral Summary ---
Author Organization [email or web address] Address [address] [place] [address] Care Team Providers Care Road Boss Name Role Phone Rigo Mock MD Primary Care Provider [phone] Source Comments [email or web address],non-owned Affiliates and Associated Physician Practices is amultiple site organization consisting of ambulatory clinics and hospital sitesin [place], [place], [place] and [place]. This disclosure is being madepursuant to the Care Everywhere program and may not contain all information available regarding this patient. Last updated 17.[email or web address] Allergies No known active allergies Medications * Be aware that medications may not be up to date on this document. Alwaysverify current medications with the patient. Medication Sig Dispensed Refills Start Date End Date Status EXFORGE 10-160 MG PO TABS daily. Active aspirin EC (ECOTRIN) 325 MG tablet Take 1 Tab by mouth daily. 30 0 01/04/2009 Active Active Problems Problem Noted Date Diagnosed Date Numbness and tingling 01/03/2009 TIA (transient ischemic attack) 01/03/2009 Social History Tobacco Use Types Packs/Day Years Used Date Smoking Tobacco: Every Day Cigarettes Sex and Gender Information Value Date Recorded Sex Assigned at Not on file Gender Identity Not on file Sexual Orientation Not on file Last Filed Vital Signs Vital Sign Reading Time Taken Comments Blood Pressure 115/63 01/04/2009 11:00 AM TASSEL MAKING MACHINE OPERATOR Pulse 53 01/04/2009 11:00 AM TASSEL MAKING MACHINE OPERATOR Temperature 37 C (98.6 F) 01/04/2009 11:00 AM TASSEL MAKING MACHINE OPERATOR Respiratory Rate 18 01/04/2009 11:00 AM TASSEL MAKING MACHINE OPERATOR Oxygen Saturation 100% 01/04/2009 11:00 AM TASSEL MAKING MACHINE OPERATOR Inhaled Oxygen Concentration - - Weight 54 kg (119 lb) 01/03/2009 10:13 PM TASSEL MAKING MACHINE OPERATOR Height 165.1 cm (5' 5 ) 01/03/2009 10:04 PM TASSEL MAKING MACHINE OPERATOR Body Mass Index 19.8 01/03/2009 10:04 PM TASSEL MAKING MACHINE OPERATOR Plan of Treatment Not on file Advance Directives * Full Code (Latest Code Status on File) Date Activated Date Inactivated Comments 01/03/2009 10:03 PM 01/05/2009 2:[address] Relationship Specialty Start Date End Date Rigo Mock MD [address] [place] [address] PCP - General 01/03/09
--- OUTSIDE RECORDS SUMMARY | 2024-04-17 13:30 | XMS_ITS | Clinical Summary ---
Author Organization [facility] Address [address] [place] [address] Care Team Providers Care Night Shift Supervisor Name Role Phone Rigo Mock MD Primary Care Provider [phone] [facility],non-owned Affiliates and Associated Physician Practices is amultiple site organization consisting of ambulatory clinics and hospital sitesin [place], [place], [place] and [place]. This disclosure is being madepursuant to the Care Everywhere program and may not contain all information available regarding this patient. Last updated 17.[facility] Allergies No known active allergies Medications * [...] Comments Blood Pressure 115/63 01/04/2009 11:00 AM LADDERMAN Pulse 53 01/04/2009 11:00 AM LADDERMAN Temperature 37 C (98.6 F) 01/04/2009 11:00 AM LADDERMAN Respiratory Rate 18 01/04/2009 11:00 AM LADDERMAN Oxygen Saturation 100% 01/04/2009 11:00 AM LADDERMAN Inhaled Oxygen Concentration - - Weight 54 kg (119 lb) 01/03/2009 10:13 PM LADDERMAN Height 165.1 cm (5' 5 ) 01/03/2009 10:04 PM LADDERMAN Body Mass Index 19.8 01/03/2009 10:04 PM LADDERMAN Plan of Treatment Health Maintenance Due Date Last Done Comments BONE DENSITY TESTING 1956 COLOGUARD (AGES 45-75) - COL ON CA SCREENING 1956 COLON MONITORING 1956 COLONOSCOPY - COLON CA SCREENING 1956 CT COLONOGRAPHY - COLON CA SCREENING 1956 Colorectal Cancer Screening 1956 FIT - COLON CA SCREENING 1956 FLEX SIG - COLON CA SCREENING 1956 LIPID TESTING 1956 MAMMOGRAM 1956 HEPATITIS C SCREENING 10/15/1974 DTAP/TDAP/TD VACCINES (1 - Tdap) 10/20/1975 PNEUMOCOCCAL VACCINE 50+ (1 of 2 - PCV) 10/20/1975 ZOSTER VACCINE (1 of 2) 2006 COVID-19 VACCINE (1 - 2023-2 5 season) 2023 INFLUENZA VACCINE (#1) 2023 DEPRESSION SCREENING 03/04/2024 MEDICARE AWV CALENDAR YEAR 2024 Respiratory Syncytial Virus (RSV) Vaccine Pt: or over 60 yrs (1 - 1-dose 75+ series) 10/20/2031 HEPATITIS B VACCINE Aged Out No longe r eligible based on patient's age to complete this topic HIB VACCINE Aged Out No longer eligi ble based on patient's age to complete this topic HPV VACCINE Aged Out No longer eligi ble based on patient's age to complete this topic MENINGOCOCCAL (Group B) VACCINE Aged Out No longer eligible based on patient's age to complete this topic MENINGOCOCCAL VACCINE Aged Out No renu adilene eligible based on patient's age to complete this topic Advance Directives * Full Code (Latest Code Status on File) Date Activated Date Inactivated Comments 01/03/2009 10:03 PM 01/05/2009 2:24 AM Care Teams Night Shift Supervisor Relationship Specialty Start Date End Date Rigo Mock MD [address] [place] [address] PCP - General 01/03/09
--- OUTSIDE RECORDS SUMMARY | 2024-04-17 13:30 | XMS_ITS | Patient Health Summary ---
Author Organization [facility] zanda Address [address] [place] [address] Care Team Providers Care Boilermaker Apprentice Name Role Phone Rigo Mock MD Primary Care Provider [phone] Note from [facility],non-owned Affiliates and Associated Physician Practices is amultiple site organization consisting of ambulatory clinics and hospital sitesin [place], [place], [place] and [place]. This disclosure is being madepursuant to the Care Everywhere program and may not contain all information available regarding this patient. Last updated 17.[facility] zanda Allergies No known active allergies Medications * Be aware that medications may not be up to date on this document. Alwaysverify current medications with the patient. * EXFORGE 10-160 MG PO TABS daily. * aspirin EC (ECOTRIN) 325 MG tablet(Started 01/04/2009) Take 1 Tab by mouth daily. Active Problems Problem Noted Date Diagnosed Date [...] Comments Blood Pressure 115/63 01/04/2009 11:00 AM ENTRY LEVEL MARKETING REPRESENTATIVE Pulse 53 01/04/2009 11:00 AM ENTRY LEVEL MARKETING REPRESENTATIVE Temperature 37 C (98.6 F) 01/04/2009 11:00 AM ENTRY LEVEL MARKETING REPRESENTATIVE Respiratory Rate 18 01/04/2009 11:00 AM ENTRY LEVEL MARKETING REPRESENTATIVE Oxygen Saturation 100% 01/04/2009 11:00 AM ENTRY LEVEL MARKETING REPRESENTATIVE Inhaled Oxygen Concentration - - Weight 54 kg (119 lb) 01/03/2009 10:13 PM ENTRY LEVEL MARKETING REPRESENTATIVE Height 165.1 cm (5' 5 ) 01/03/2009 10:04 PM ENTRY LEVEL MARKETING REPRESENTATIVE Body Mass Index 19.8 01/03/2009 10:04 PM ENTRY LEVEL MARKETING REPRESENTATIVE Procedures * CARDIAC RHYTHM STRIP ORDER(Performed 01/29/2009) * CARDIAC EKG ORDER(Performed 01/12/2009) * CARDIAC EKG ORDER(Performed 01/04/2009) * ECHOCARDIOGRAM 2D WITH DOPPLER(Performed 01/04/2009) Performed for TIA (Transient Ischemic Attack) * MRI BRAIN WWO CONTRAST(Performed 01/04/2009) Performed for TIA (Transient Ischemic Attack) * MRI ANGIO BRAIN ARTERIAL WO CONT(Performed 01/04/2009) Performed for TIA (Transient Ischemic Attack) * MRI ANGIO NECK WO CONTRAST(Performed 01/04/2009) Performed for TIA (Transient Ischemic Attack) * TROPONIN I(Performed 01/04/2009) Performed for Trans Cereb Ischemia NOS * TROPONIN I(Performed 01/04/2009) Performed for Trans Cereb Ischemia NOS * CT HEAD WO CONTRAST(Performed 01/03/2009) Performed for Numbness And Tingling * XR CHEST 2VW(Performed 01/03/2009) Performed for Numbness And Tingling * PTT(Performed 01/03/2009) * PT-INR(Performed 01/03/2009) * MYOGLOBIN BLOOD(Performed 01/03/2009) * TROPONIN I(Performed 01/03/2009) * URINALYSIS REFLEX TO MICROSCOPIC NO CULTURE(Performed 01/03/2009) * COMPREHENSIVE METABOLIC PANEL(Performed 01/03/2009) * CBC W AUTO DIFFERENTIAL(Performed 01/03/2009) Results * CARDIAC RHYTHM STRIP ORDER (01/29/2009 7:56 PM ENTRY LEVEL MARKETING REPRESENTATIVE) Narrative 01/29/2009 7:56 PM ENTRY LEVEL MARKETING REPRESENTATIVE Ordered by an unspecified provider. Transcriptions Document, Scanned - 01/03/2009 12:00 AM ENTRY LEVEL MARKETING REPRESENTATIVE Scanned Document CARDIAC SERVICES ORD ERABLES * CARDIAC EKG ORDER (01/12/2009 8:30 AM ENTRY LEVEL MARKETING REPRESENTATIVE) Only the most recent of2 resultswithin the time period is included. Narrative 01/12/2009 8:30 AM ENTRY LEVEL MARKETING REPRESENTATIVE Ordered by an unspecified provider. Transcriptions Document, Scanned - 01/03/2009 12:00 AM ENTRY LEVEL MARKETING REPRESENTATIVE Scanned Document CARDIAC SERVICES ORD ERABLES * ECHOCARDIOGRAM 2D WITH DOPPLER (01/04/2009 10:26 AM ENTRY LEVEL MARKETING REPRESENTATIVE) 01/04/2009 10:2 6 AM ENTRY LEVEL MARKETING REPRESENTATIVE Narrative [facility] - 01/04/2009 11:50 AM ENTRY LEVEL MARKETING REPRESENTATIVE ECHOCARDIOGRAPHY REPORT [id number] [place] [address] Transthoracic Echocardiogram 2D, M-mode, Doppler, and Color Doppler Date of Service: 01/04/2009 Patient: AMY PERRY : 1955 Age: 53 years Gender: Female Race: Height: Weight: BSA: Reading Physician: GALI CARCAMO MD SHIP PILOT DISPATCHER: RAÚL ELDRIDGE Cardiology Group: [facility] Summary: - Procedure information: - BUBBLE STUDY - Left ventricle: - Systolic function was normal. Ejection fraction was estimated in the range of 55 % to 65 %. - There were no regional wall motion abnormalities. - Tricuspid valve: - There was mild regurgitation. - Atrial septum: - Contrast injection was performed. There was no abvoz-ny-ctme shunt, with provocative maneuvers to increase right atrial pressure. Indications: Assess transient ischemic attack. Procedure: The study was performed in the room 734. This was a routine study. BUBBLE STUDY The transthoracic approach was used. The study included complete 2D imaging, M-mode, complete spectral Doppler, and color Doppler. Image quality was adequate. Left ventricle: Size was normal. Systolic function was normal. Ejection fraction was estimated in the range of 55 % to 65 %. There were no regional wall motion abnormalities. Wall thickness was normal. Aortic valve: The valve was trileaflet. Leaflets exhibited normal thickness and normal cuspal separation. Doppler: Transaortic velocity was within the normal range. There was no stenosis. No regurgitation was evident. Aorta: The root exhibited normal size. Mitral valve: Valve structure was normal. There was normal leaflet separation. Doppler: The transmitral velocity was within the normal range. There was no evidence for stenosis. There was no regurgitation. Left atrium: Size was normal. Right atrium: Size was normal. Right ventricle: The size was normal. Systolic function was normal. Wall thickness was normal. Tricuspid valve: The valve structure was normal. There was normal leaflet separation. Doppler: The transtricuspid velocity was within the normal range. There was no evidence for tricuspid stenosis. There was mild regurgitation. Pulmonic valve: Leaflets exhibited normal thickness, no calcification, and normal cuspal separation. Doppler: The transpulmonic velocity was within the normal range. There was no regurgitation. Pulmonary artery: The size was normal. Doppler: Systolic pressure was within the normal range. Atrial septum: Contrast injection was performed. There was no sajaj-fb-ksuu shunt, with provocative maneuvers to increase right atrial pressure. Systemic veins: IVC: Not reported. SVC: Not reported. Innominate vein: Not reported. Hepatic veins: Not reported. Pericardium: There was no pericardial effusion. System measurement tables AoV Continuity Equation Vmax AoV: 1.1 m/sec Aortic Doppler AoV Pk Grad: 4.7 mmHg AoV Vmax: 1.1 m/sec M-mode LA Diam: 2.4 cm Ao Diam: 2.4 cm IVS Diastole: 1 cm LV Diastole: 4.7 cm LV Systole: 3.3 cm LVPW Diastole: 0.8 cm MV Doppler MV Peak A: 0.7 m/sec MV Peak E: 0.8 m/sec PV Doppler PV Pk Grad: 2.9 mmHg RVSP via TR or VSD RV sys Press: 29.4 mmHg TR Pk Grad: 19.4 mmHg TR Vmax: 2.2 m/sec Prepared and signed by GALI CARCAMO MD Signed 01/04/2009 11:53:14 Procedure Note Gali Carcamo MD - 01/04/2009 ECHOCARDIOGRAPHY REPORT [address] [address] Transthoracic Echocardiogram 2D, M-mode, Doppler, and Color Doppler Date of Service: 01/04/2009 Patient: AMY PERRY : 1955 Age: 53 years Gender: Female Race: Height: Weight: BSA: Reading Physician: GALI CARCAMO MD SHIP PILOT DISPATCHER: RAÚL ELDRIDGE Cardiology Group: [facility] Summary: - Procedure information: - BUBBLE STUDY - Left ventricle: - Systolic function was normal. Ejection fraction was estimated in the range of 55 % to 65 %. - There were no regional wall motion abnormalities. - Tricuspid valve: - There was mild regurgitation. - Atrial septum: - Contrast injection was performed. There was no sgkkz-md-yawj shunt, with provocative maneuvers to increase right atrial pressure. Indications: Assess transient ischemic attack. Procedure: The study was performed in the room 734. This was a routine study. BUBBLE STUDY The transthoracic approach was used. The study included complete 2D imaging, M-mode, complete spectral Doppler, and color Doppler. Image quality was adequate. Left ventricle: Size was normal. Systolic function was normal. Ejection fraction was estimated in the range of 55 % to 65 %. There were no regional wall motion abnormalities. Wall thickness was normal. Aortic valve: The valve was trileaflet. Leaflets exhibited normal thickness and normal cuspal separation. Doppler: Transaortic velocity was within the normal range. There was no stenosis. No regurgitation was evident. Aorta: The root exhibited normal size. Mitral valve: Valve structure was normal. There was normal leaflet separation. Doppler: The transmitral velocity was within the normal range. There was no evidence for stenosis. There was no regurgitation. Left atrium: Size was normal. Right atrium: Size was normal. Right ventricle: The size was normal. Systolic function was normal. Wall thickness was normal. Tricuspid valve: The valve structure was normal. There was normal leaflet separation. Doppler: The transtricuspid velocity was within the normal range. There was no evidence for tricuspid stenosis. There was mild regurgitation. Pulmonic valve: Leaflets exhibited normal thickness, no calcification, and normal cuspal separation. Doppler: The transpulmonic velocity was within the normal range. There was no regurgitation. Pulmonary artery: The size was normal. Doppler: Systolic pressure was within the normal range. Atrial septum: Contrast injection was performed. There was no npwya-cs-llwt shunt, with provocative maneuvers to increase right atrial pressure. Systemic veins: IVC: Not reported. SVC: Not reported. Innominate vein: Not reported. Hepatic veins: Not reported. Pericardium: There was no pericardial effusion. System measurement tables AoV Continuity Equation Vmax AoV: 1.1 m/sec Aortic Doppler AoV Pk Grad: 4.7 mmHg AoV Vmax: 1.1 m/sec M-mode LA Diam: 2.4 cm Ao Diam: 2.4 cm IVS Diastole: 1 cm LV Diastole: 4.7 cm LV Systole: 3.3 cm LVPW Diastole: 0.8 cm MV Doppler MV Peak A: 0.7 m/sec MV Peak E: 0.8 m/sec PV Doppler PV Pk Grad: 2.9 mmHg RVSP via TR or VSD RV sys Press: 29.4 mmHg TR Pk Grad: 19.4 mmHg TR Vmax: 2.2 m/sec Prepared and signed by GALI CARCAMO MD Signed 01/04/2009 11:53:14 Gypsy Barron MD ECHO ORDERABLES [facility] * MRI BRAIN WITH & WITHOUT CONTRAST (01/04/2009 10:16 AM ENTRY LEVEL MARKETING REPRESENTATIVE) Anatomical Region Laterality Modality Head Magnetic Resonan ce 01/04/2009 11:3 9 AM ENTRY LEVEL MARKETING REPRESENTATIVE Impressions 01/04/2009 12:07 PM ENTRY LEVEL MARKETING REPRESENTATIVE UNREMARKABLE BRAIN MRI. Narrative 01/04/2009 12:07 PM ENTRY LEVEL MARKETING REPRESENTATIVE MRI BRAIN WITH AND WITHOUT CONTRAST CLINICAL INDICATION: Stroke, cerebrovascular accident, transient ischemic attack. TECHNIQUE: Sagittal T1, diffusion-weighted, axial T1 pre- and postcontrast, axial T2 dual-echo, coronal FLAIR, and coronal T1 postcontrast sequences of the brain were obtained. 10 cc Omniscan gadolinium contrast was utilized for the postcontrast scans. FINDINGS: There are no sites of restricted diffusion to suggest acute cortical or subcortical infarct. A few subcentimeter nonenhancing foci of subcortical T2 and FLAIR white matter hyperintensity are noted. There are no other sites of abnormal signal within the brain parenchyma. There are no abnormal sites of enhancement. There is no mass effect or midline shift. There are no extra-axial fluid collections. The arterial and venous flow-voids are preserved. Procedure Note Elizabeth Perez MD - 01/04/2009 MRI BRAIN WITH AND WITHOUT CONTRAST CLINICAL INDICATION: Stroke, cerebrovascular accident, transient ischemic attack. TECHNIQUE: Sagittal T1, diffusion-weighted, axial T1 pre- and postcontrast, axial T2 dual-echo, coronal FLAIR, and coronal T1 postcontrast sequences of the brain were obtained. 10 cc Omniscan gadolinium contrast was utilized for the postcontrast scans. FINDINGS: There are no sites of restricted diffusion to suggest acute cortical or subcortical infarct. A few subcentimeter nonenhancing foci of subcortical T2 and FLAIR white matter hyperintensity are noted. There are no other sites of abnormal signal within the brain parenchyma. There are no abnormal sites of enhancement. There is no mass effect or midline shift. There are no extra-axial fluid collections. The arterial and venous flow-voids are preserved. IMPRESSION UNREMARKABLE BRAIN MRI. Gypsy Barron MD MR ORDERABLES * MRA ANGIO HEAD NON CONTRAST (01/04/2009 9:51 AM ENTRY LEVEL MARKETING REPRESENTATIVE) Anatomical Region Laterality Modality Head Magnetic Resonan ce 01/04/2009 10:2 3 AM ENTRY LEVEL MARKETING REPRESENTATIVE Impressions 01/04/2009 12:42 PM ENTRY LEVEL MARKETING REPRESENTATIVE Negative intracranial MRA. Narrative 01/04/2009 12:42 PM ENTRY LEVEL MARKETING REPRESENTATIVE MRA INTRACRANIAL INDICATION: TIA CVA. Left-sided weakness and numbness. TECHNIQUE: 3-D vqqq-aw-oqhvww images were obtained through the [place]. FINDINGS: Intracranial vessels are normal in course and caliber. No focal stenosis or branch occlusion is appreciated. Vertebral arteries are patent intracranially, bilaterally. However, the left vertebral artery is the dominant supply to the posterior fossa. No intracranial aneurysm is identified, however, MRA is relatively insensitive in the detection of aneurysms 5 millimeters in diameter or smaller. Procedure Note Matt Perla MD - 01/04/2009 MRA INTRACRANIAL INDICATION: TIA CVA. Left-sided weakness and numbness. TECHNIQUE: 3-D pavc-zf-stkwna images were obtained through the [place]. FINDINGS: Intracranial vessels are normal in course and caliber. No focal stenosis or branch occlusion is appreciated. Vertebral arteries are patent intracranially, bilaterally. However, the left vertebral artery is the dominant supply to the posterior fossa. No intracranial aneurysm is identified, however, MRA is relatively insensitive in the detection of aneurysms 5 millimeters in diameter or smaller. IMPRESSION Negative intracranial MRA. Juanjo Hwang MD MR ORDERABLES * MRA ANGIO NECK WO CONTRAST (01/04/2009 9:33 AM ENTRY LEVEL MARKETING REPRESENTATIVE) Anatomical Region Laterality Modality Head Magnetic Resonan ce 01/04/2009 10:2 7 AM ENTRY LEVEL MARKETING REPRESENTATIVE Impressions 01/04/2009 12:42 PM ENTRY LEVEL MARKETING REPRESENTATIVE Negative MRA. Narrative 01/04/2009 12:42 PM ENTRY LEVEL MARKETING REPRESENTATIVE MRA NECK INDICATION: TIA CVA. Left-sided weakness and numbness. TECHNIQUE: 3-D awpb-qy-pumeda images were obtained through the neck at the level of the carotid bifurcations. FINDINGS: No significant stenosis can be seen at the carotid bifurcations. The vertebral arteries are patent. The left vertebral artery is larger in caliber than the right. Procedure Note Matt Perla MD - 01/04/2009 MRA NECK INDICATION: TIA CVA. Left-sided weakness and numbness. TECHNIQUE: 3-D vsiq-tc-gqrxey images were obtained through the neck at the level of the carotid bifurcations. FINDINGS: No significant stenosis can be seen at the carotid bifurcations. The vertebral arteries are patent. The left vertebral artery is larger in caliber than the right. IMPRESSION Negative MRA. Juanjo Hwang MD MR ORDERABLES * TROPONIN I (01/04/2009 8:10 AM ENTRY LEVEL MARKETING REPRESENTATIVE) Only the most recent of3 resultswithin the time period is included. Troponin I <0.10 SEE BELOW ng/ml [facility] Comment: Normal <0.10 [place] 0.10-0.99 Positive >=1.00 SERUM OR PLASMA SPECIMEN / Unknown 01/04/2009 8:10 AM ENTRY LEVEL MARKETING REPRESENTATIVE 01/04/2009 8:18 AM ENTRY LEVEL MARKETING REPRESENTATIVE Narrative [facility] - 01/04/2009 8:58 AM ENTRY LEVEL MARKETING REPRESENTATIVE Perform on patients greater than 35* Andrew Madden MD LAB - CHEMISTRY MIKAEL HALL [facility] [address] [place] [address] * CT HEAD NON CONTRAST (01/03/2009 7:54 PM ENTRY LEVEL MARKETING REPRESENTATIVE) Anatomical Region Laterality Modality Head Computed Tomogra phy 01/03/2009 7:57 PM ENTRY LEVEL MARKETING REPRESENTATIVE Impressions 01/03/2009 7:59 PM ENTRY LEVEL MARKETING REPRESENTATIVE No acute intracranial abnormalities. Narrative 01/03/2009 7:59 PM ENTRY LEVEL MARKETING REPRESENTATIVE CT scan of the brain without contrast Indication: Left-sided weakness, numbness, tingling, stroke, CVA Comparison: None available Findings: Axial CT images of the brain were obtained without contrast. There is no evidence of acute intracranial hemorrhage or recent cortical ischemia. There is no mass-effect or midline shift. Ventricular and sulcal size is within normal limits. There are no extra-axial fluid collections. The bony calvarium is intact. The paranasal sinuses are well aerated. Procedure Note Elizabeth Perez MD - 01/03/2009 CT scan of the brain without contrast Indication: Left-sided weakness, numbness, tingling, stroke, CVA Comparison: None available Findings: Axial CT images of the brain were obtained without contrast. There is no evidence of acute intracranial hemorrhage or recent cortical ischemia. There is no mass-effect or midline shift. Ventricular and sulcal size is within normal limits. There are no extra-axial fluid collections. The bony calvarium is intact. The paranasal sinuses are well aerated. IMPRESSION No acute intracranial abnormalities. Gypsy Barron MD CT ORDERABLES * XR CHEST PA AND LATERAL (01/03/2009 4:29 PM ENTRY LEVEL MARKETING REPRESENTATIVE) Anatomical Region Laterality Modality Chest Radiographic Mary ging 01/03/2009 4:51 PM ENTRY LEVEL MARKETING REPRESENTATIVE Impressions 01/03/2009 4:53 PM ENTRY LEVEL MARKETING REPRESENTATIVE normal chest x-ray Narrative 01/03/2009 4:53 PM ENTRY LEVEL MARKETING REPRESENTATIVE PA AND LATERAL CHEST Indication: Numbness and tingling PA and lateral views of the chest show the lungs to be expanded and clear. The cardiac and mediastinal silhouettes and pulmonary vascularity are within normal limits. Procedure Note Fly Castelan - 01/03/2009 PA AND LATERAL CHEST Indication: Numbness and tingling PA and lateral views of the chest show the lungs to be expanded and clear. The cardiac and mediastinal silhouettes and pulmonary vascularity are within normal limits. IMPRESSION normal chest x-ray Andrew Madden MD DIAGNOSTIC IMAGING O RDERABLES * URINALYSIS ROUTINE AUTO (01/03/2009 4:01 PM ENTRY LEVEL MARKETING REPRESENTATIVE) Color UA YELLOW [facility] Character UA CLOUDY [facility] Specific [place] UA 1.014 1.005 - 1.0300 [facility] pH UA 5.5 4.6 - 8.0 pH Units [facility] Leukocyte UA MODERATE Negative /ul [facility] Nitrite UA NEGATIVE Negative [facility] Protein UA NEGATIVE Negative mg/dl [facility] Glucose UA NEGATIVE Normal mg/dl [facility] Ketone UA NEGATIVE Negative mg/dl [facility] Urobilinogen UA 0.2 Normal [place] Units [facility] Bilirubin UA NEGATIVE Negative mg/dl [facility] Blood UA NEGATIVE Negative /ul [facility] WBC UA 10-20 /HPF [facility] RBC UA <5 /HPF [facility] Epithelial Cell UA <5 /HPF [facility] Casts UA <2 /LPF [facility] Bacteria UA NEGATIVE [facility] URINE SPECIMEN OBTAINED BY CLEAN CATCH PROCEDURE / Unknown 01/03/2009 4:01 PM ENTRY LEVEL MARKETING REPRESENTATIVE 01/03/2009 6:25 PM ENTRY LEVEL MARKETING REPRESENTATIVE Andrew Madden MD LAB - URINALYSIS ORD ERABLES Performing Organization Address City/[facility] Co de Phone Number [facility] [address] [place] [address] * MYOGLOBIN BLOOD (01/03/2009 4:01 PM ENTRY LEVEL MARKETING REPRESENTATIVE) Myoglobin 6.4 0.0 - 110.0 ng/ml [facility] SERUM OR PLASMA SPECIMEN / Unknown 01/03/2009 4:01 PM ENTRY LEVEL MARKETING REPRESENTATIVE 01/03/2009 4:21 PM ENTRY LEVEL MARKETING REPRESENTATIVE Narrative [facility] - 01/03/2009 5:08 PM ENTRY LEVEL MARKETING REPRESENTATIVE Perform on patients greater than 35* Andrew Madden MD LAB - CHEMISTRY ORDE RABMASTER [facility] [address] [place] [address] * PTT (01/03/2009 4:01 PM ENTRY LEVEL MARKETING REPRESENTATIVE) PTT 24.8 24.0 - 32.0 seconds [facility] BLOOD SPECIMEN / Unknown 01/03/2009 4:01 PM ENTRY LEVEL MARKETING REPRESENTATIVE 01/03/2009 4:21 PM ENTRY LEVEL MARKETING REPRESENTATIVE Narrative [facility] - 01/03/2009 4:45 PM ENTRY LEVEL MARKETING REPRESENTATIVE Perform for patients taking warfari* Andrew Madden MD LAB - COAGULATION OR DERABLES Performing Organization Address City/[facility] Co de Phone Number [facility] [address] [place] [address] * PT-INR (01/03/2009 4:01 PM ENTRY LEVEL MARKETING REPRESENTATIVE) [facility] PT 10.5 9.4 - 11.2 seconds [facility] INR 1.0 SEE BELOW [facility] Comment: 0.9-1.1 Normal 2.0-3.0 Conventional 2.5-3.5 Intensive BLOOD SPECIMEN / Unknown 01/03/2009 4:01 PM ENTRY LEVEL MARKETING REPRESENTATIVE 01/03/2009 4:21 PM ENTRY LEVEL MARKETING REPRESENTATIVE Narrative [facility] - 01/03/2009 4:45 PM ENTRY LEVEL MARKETING REPRESENTATIVE Perform for patients taking warfari* Andrew Madden MD LAB - COAGULATION OR DERABLES Performing Organization Address [facility] de Phone Number [facility] [address] [place] [address] * (ABNORMAL) CBC W AUTO DIFFERENTIAL (01/03/2009 4:01 PM ENTRY LEVEL MARKETING REPRESENTATIVE) [facility] WBC 7.5 4.5 - 11.0 1000/mm3 [facility] RBC 4.13(L) 4.2 - 5.4 10X6 [facility] Hemoglobin 12.7 12.0 - 16.0 gm/dl [facility] Hematocrit 37.4 36.0 - 48.0 % [facility] MCV 90.6 80.0 - 99.0 fl [facility] MCH 30.8 25.0 - 31.0 pg [facility] MCHC 34.0 32.0 - 36.0 gm/dl [facility] RDW 13.1 11.5 - 14.5 % [facility] Platelet Count 339 130.0 - 400.0 1000/mm3 [facility] Granulocytes % 56.6 40.0 - 70.0 % [facility] Lymphocytes % 29.8 22.0 - 40.0 % [facility] Monocytes % 10.4(H) 2.0 - 10.0 % [facility] Eosinophils % 2.4 0.0 - 6.0 % [facility] Basophils % 0.8 0.0 - 3.0 % [facility] Granulocytes Absolute 4.24 1.8 - 7.7 [facility] Lymphocytes Absolute 2.23 1.0 - 5.4 [facility] Monocytes Absolute 0.78 0.1 - 1.1 [facility] Eosinophils Absolute 0.18 0.0 - 0.7 [facility] Basophils Absolute 0.06 0.0 - 0.2 [facility] Comment Manual Diff Not Indicated [facility] BLOOD SPECIMEN / Unknown 01/03/2009 4:01 PM ENTRY LEVEL MARKETING REPRESENTATIVE 01/03/2009 4:21 PM ENTRY LEVEL MARKETING REPRESENTATIVE Narrative [facility] - 01/03/2009 4:37 PM ENTRY LEVEL MARKETING REPRESENTATIVE Perform for patients taking warfari* Andrew Madden MD LAB - HEMATOLOGY ORD ERABLES [facility] [address] [place] [address] * (ABNORMAL) COMPREHENSIVE METABOLIC PANEL (01/03/2009 4:01 PM ENTRY LEVEL MARKETING REPRESENTATIVE) BUN 17 7.0 - 17.0 mg/dl [facility] [facility] Sodium 139 137 - 145 mmol/L [facility] Potassium 4.0 3.6 - 5.0 mmol/L [facility] Chloride 100 98.0 - 107.0 mmol/L [facility] Glucose 97 75 - 110 mg/dl [facility] Creatinine 0.8 0.7 - 1.2 mg/dl [facility] AST 32 14.0 - 36.0 U/L [facility] Alkaline Phosphatase 91 38.0 - 126.0 U/L [facility] Calcium 9.7 8.4 - 10.2 mg/dl [facility] Bilirubin Total 0.2 0.2 - 1.3 mg/dl [facility] Albumin 5.0 3.5 - 5.0 gm/dl [facility] Protein Total 8.3(H) 6.3 - 8.2 gm/dl [facility] CO2 32(H) 22.0 - 30.0 mEq/L [facility] ALT 20 9.0 - 52.0 U/L [facility] eGFR by MDRD 80.1 ml/min/1.7 3m2 [facility] BLOOD SPECIMEN / Unknown 01/03/2009 4:01 PM ENTRY LEVEL MARKETING REPRESENTATIVE 01/03/2009 4:21 PM ENTRY LEVEL MARKETING REPRESENTATIVE Narrative [facility] - 01/03/2009 4:42 PM ENTRY LEVEL MARKETING REPRESENTATIVE Perform for patients taking warfari* Andrew Madden MD LAB - CHEMISTRY MIKAEL HALL [facility] [address] [place] [address] Care Teams Boilermaker Apprentice Relationship Specialty Start Date End Date Rigo Mock MD [address] [place] [address] PCP - General 01/03/09
== END 2024-04-17 13:23 | disposition home or self-care (01) ==
LOC: ANHIMG 13:24
PROVIDERS: PCP Nurse Practitioner Family; Visit Provider Internal Medicine
DX: M81.0 Age-related osteoporosis without current pathological fracture (principal); M85.89 Other specified disorders of bone density and structure, multiple sites
CPT/HCPCS: 77080

== ENCOUNTER 2024-10-27 10:15 | Outpatient (CLI) | payer OTHER, SELFPAY ==
--- NOTE | ~2024-10-27 | MM_ITS ---
EXAMINATION: MM screening franci BI w madiha HISTORY: Screening TECHNIQUE: Craniocaudal and mediolateral oblique 3-D tomosynthesis images were obtained and synthetic 2-D images were generated. CAD analysis was submitted and interpreted. COMPARISON: Comparison to multiple prior studies sequentially, with oldest reviewed study dated 05/18/2017. BREAST PARENCHYMAL COMPOSITION: There are scattered areas of fibroglandular density. FINDINGS: There is no evidence of suspicious mass, calcification, or architectural distortion to suggest malignancy in either breast. IMPRESSION: 1. No mammographic evidence of malignancy. 2. Recommend routine screening mammography in one year. BI-RADS Category 1: Negative Reviewed, dictated and finalized at location B.
== END 2024-10-27 10:16 | disposition home or self-care (01) ==
LOC: MICIMG 10:17
PROVIDERS: PCP Nurse Practitioner Family; Visit Provider Nurse Practitioner Family
DX: Z12.31 Encounter for screening mammogram for malignant neoplasm of breast (principal)
CPT/HCPCS: 77063; 77067

== ENCOUNTER 2024-12-09 10:08 | Outpatient (CLI) | payer OTHER, SELFPAY ==
--- NOTE | ~2024-12-09 | XR_ITS ---
EXAMINATION: XR chest 2V, 12/09/2024 10:15 CDT HISTORY: R05.9 - Cough, unspecified, SOB X 2 MONTHS COMPARISON: No comparisons available. Technique: 2 views obtained. Findings: The lungs are clear, no effusion. No pneumothorax. Heart is normal size. Mediastinal and hilar contours are within normal limits. Bony thorax no acute abnormality. Impression: No acute cardiopulmonary abnormality. Reviewed, dictated and finalized at location P. Impression: No acute cardiopulmonary abnormality.
== END 2024-12-09 10:09 | disposition home or self-care (01) ==
PROVIDERS: PCP Nurse Practitioner Family; Visit Provider Nurse Practitioner Family
DX: R05.9 Cough, unspecified (principal); R06.02 Shortness of breath
CPT/HCPCS: 71046

== ENCOUNTER 2025-01-05 08:49 | Outpatient (CLI) | payer OTHER, SELFPAY ==
--- OUTSIDE RECORDS SUMMARY | 2025-01-05 09:43 | XMS_ITS | Clinical Summary ---
Author Organization [facility] Address [address] [place] [address] Care Team Providers Care Athletic Coordinator Name Role Phone Rigo Mock MD Primary Care Provider [phone] Source Comments [facility],non-owned Affiliates and Associated Physician Practices is amultiple site organization consisting of ambulatory clinics and hospital sitesin [place], [place], [place]. This disclosure is being madepursuant to the Care Everywhere program and may not contain all information available regarding this patient. Last updated [employer] Allergies No known active allergies Medications * Be aware that medications may not be up to date on this document. Alwaysverify current medications with the patient. EXFORGE 10-160 MG PO TABS daily. Active aspirin EC (ECOTRIN) 325 MG tablet Take 1 Tab by mouth daily. 30 0 01/04/2009 Active Active Problems Problem Noted Date Diagnosed Date Numbness and tingling 01/03/2009 TIA (transient ischemic attack) 01/03/2009 Social History Tobacco Use Types Packs/Day Years Used Date Smoking Tobacco: Every Day Cigarettes Comments Unknown Sex and Gender Information Value Date Recorded Sex Assigned at Not on file Legal Sex Female 8:08 AM VENDING ENTERPRISES SUPERVISOR Gender Identity Not on file Sexual Orientation Not on file Last Filed Vital Signs Vital Sign Reading Time Taken Comments Blood Pressure 115/63 01/04/2009 11:00 AM VENDING ENTERPRISES SUPERVISOR Pulse 53 01/04/2009 11:00 AM VENDING ENTERPRISES SUPERVISOR Temperature 37 C (98.6 F) 01/04/2009 11:00 AM VENDING ENTERPRISES SUPERVISOR Respiratory Rate 18 01/04/2009 11:00 AM VENDING ENTERPRISES SUPERVISOR Oxygen Saturation 100% 01/04/2009 11:00 AM VENDING ENTERPRISES SUPERVISOR Inhaled Oxygen Concentration - - Weight 54 kg (119 lb) 01/03/2009 10:13 PM VENDING ENTERPRISES SUPERVISOR Height 165.1 cm (5' 5) 01/03/2009 10:04 PM VENDING ENTERPRISES SUPERVISOR Body Mass Index 19.8 01/03/2009 10:04 PM VENDING ENTERPRISES SUPERVISOR Plan of Treatment Health Maintenance Due Date Last Done Comments BONE DENSITY TESTING 1955 COLOGUARD (AGES 45-75) - COL ON CA SCREENING 1955 COLON MONITORING 1955 COLONOSCOPY - COLON CA SCREENING 1955 CT COLONOGRAPHY - COLON CA SCREENING 1955 Colorectal Cancer Screening 1955 FIT - COLON CA SCREENING 1955 FLEX SIG - COLON CA SCREENING 1955 LIPID TESTING 1955 MAMMOGRAM 1955 MEDICARE AWV 12 MONTHS 1955 HEPATITIS C SCREENING 10/15/1974 DTAP/TDAP/TD VACCINES (1 - Tdap) 10/20/1975 PNEUMOCOCCAL VACCINE 50+ (1 of 2 - PCV) 10/20/1975 ZOSTER VACCINE (1 of 2) 2006 DEPRESSION SCREENING 03/04/2024 COVID-19 VACCINE (1 - 2023-2 5 season) 2024 INFLUENZA VACCINE (#1) 2024 Respiratory Syncytial Virus (RSV) Vaccine Pt: [...] to complete this topic MENINGOCOCCAL (Group B) VACC INE SHARED DECISION-MAKING Aged Out No longer eligibl e based on patient's age to complete this topic MENINGOCOCCAL GROUPS A/C/Y/W VACCINE Aged Out No longer eligible b ased on patient's age to complete this topic Insurance [facility] MEDICARE SELF PAY NO INSURANCE Member Subscriber Plan / Payer (Ef fective for All Dates) Name:Amy Perry Member ID:Not on file Relation to Subscriber:Not on file Name:AMY PERRY Subscriber ID:Not on file (Home) Address: [address] [place] [id number] Payer ID:Not on file Group ID:Not on file Type:Self Pay Address: [place], [place] Advance Directives * Full Code (Latest Code Status on File) Date Activated Date Inactivated Comments 01/03/2009 10:03 PM 01/05/2009 2:24 AM Care Teams Athletic Coordinator Relationship Specialty Start Date End Date Rigo Mock MD [address] [place] [address] PCP - General 01/03/09
--- NOTE | 2025-01-20 11:45 | WPDHOMESLEEP ---
Sleep Study - Home Unattended Date of Study: 01/05/25 Ordering Provider: Elzbieta Rodrigues APRN Interpreting Provider: Carolina Stevens DO Home Sleep Study Type: Watch PAT Height: 1.65 m Weight: 63.503 kg Body Mass Index: 23.3 Neck Circumference (inches): 14 Bar[place]: 0 Reason for Sleep Study Nocturnal gasping and snoring Sleep History The patient is a 69-year-old female that had a sleep study ordered by her primary care for evaluation of sleep apnea. The patient occasionally awakens from sleep short of breath. She denies awakening at night with heartburn, belching or cough. She occasionally snores. She occasionally has trouble sleeping when she has a cold. She occasionally wakes up gasping for air throughout the night. She occasionally sweats excessively at night. She occasionally has heart palpitations or irregular heartbeats during the night. She denies falling asleep during the day and while driving. She denies having trouble at school or work due to sleepiness. She occasionally remembers her dreams. She occasionally has thoughts racing through her mind. She occasionally feels sad, depressed and anxious. She frequently has muscular tension. She frequently notices parts of her body jerk. She occasionally kicks during the night. She occasionally has leg pain during the night. She denies awakening with morning jaw pain. She does not have a set bedtime. She wakes up 2-3 times throughout the night for unknown reasons and is able to fall back asleep within a few minutes. She wakes up at 5:00 a.m. every morning. The amount of sleep she gets per night is variable. She does not stay in bed long after waking up in the morning. She currently lives alone. She denies consuming any caffeinated beverages within 2 hours of bedtime. She will occasionally read before falling asleep. She will watch television before falling asleep. She will take naps in afternoon or the evening but they are not refreshing. She consumes 2 cups of caffeinated beverage per day. She is a former smoker. She consumes 2 alcoholic beverages per day. She does use an unspecified recreational drug. [facility] Past Medical History Medical History Elevated liver enzymes Osteoporosis Lumbago Cervicalgia Swelling of joint of multiple sites Screening mammogram for breast cancer Impaired glucose tolerance Hyperlipidemia Contact dermatitis Essential (primary) hypertension On chcf drug therapy Family History Family History Father Hypertension Family history of coronary artery disease Mother Hypertension Other Diabetes mellitus Social History Social History Smoking packs per day: 0.75 Smoking cigarettes per day: 15.0 Years smoked: 10 Smoking pack-years: 7.50 Smoking status: Former smoker Tobacco type: cigarettes Second hand tobacco smoke exposure: No Alcohol intake: current Drinks per week: 7 Alcohol use details: Glass of wine nightly Substance use: never Substance use type: does not use Lack of Transportation: No Lack of Food: Never True Current Housing: I Have Housing Concerned About Future Housing: No Difficulty Paying Gas/Electric Bills: No Difficulty Paying for Meds: No Currently Unemployed: No Education: High School Diploma/GED Difficulty w/ Childcare or Family Care: No Living arrangements: alone Spiritual care concerns: No Medications Home Medications ?Medication ?Instructions ?Recorded ?Confirmed ?Type gabapentin 300 mg capsule See Rx Instructions .Route 12/10/23 12/08/24 Rx .COMPLEX #90 caps amlodipine 10 mg-valsartan 320 mg See Rx Instructions .Route 06/15/24 12/08/24 Rx tablet .COMPLEX #90 tabs cholecalciferol (vitamin D3) 1,250 1,250 mcg PO WEEKLY #10 caps 12/23/24 12/23/24 Rx mcg (50,000 unit) capsule venlafaxine 75 mg capsule,extended See Rx Instructions .Route 12/28/24 Rx release 24 hr .COMPLEX #30 caps Sleep Procedure The sleep study was completed using WhittlT a technically adequate device with seven channels: peripheral arterial tone, actigraphy, body position, snore, respiratory movement, pulse oximetry, sleep staging, and heart rate. Prior to using the device, the patient received verbal and written instructions for its application and was provided with the help desk phone number for additional telephonic instruction with 24-hour availability of qualified personnel to answer questions. The study was scored using CMS guidelines. Sleep Architecture The total recording time is 10 hrs, 28 min. The total sleep time is 8 hrs, 23 min. Sleep latency is 6 minutes. REM latency is 457 minutes. The patient had 13 episodes of waking. Sleep architecture shows 15.4% deep sleep, 76.0% light sleep, and (as % Total Sleep Time) showed NREM (Light 76.0%; Deep 15.4%), and a 8.6% stage REM. The patient spent 6.9% of total sleep time in the supine position. Sleep efficiency was 80.10. Respiratory Analysis The overall AHI (pAHI 4%:) is 4.4. The overall AHI (pAHI 3%:) is 8.3. The central AHI is 0.9. The AHI was 8.7 in NREM and 5.5 in REM sleep. The AHI was 11.2 in Supine and 8.2 in Non-supine sleep. Percent of Ronald Aldrich respirations is 0.0. Oximetry Data The oxygen desaturation index (YOSELIN 4%:) is 2.7. The mean saturation is 94%, and the lowest saturation is 86%. Time spent with saturation < 88% is 0.8 minutes. Snoring Profile Snoring average intensity is 41 dB. The patient snored above 45 decibels for 29.4 minutes, 5.8% of sleep time. Cardiac Profile The average pulse rate is 81 beats per minutes. The lowest pulse rate is 61 bpm. The highest pulse rate reported is 129 bpm. Suspected Afib total duration is 0:16:03, (h:m:sec). The longest Afibevent duration is 0:07:25. Premature beats occur 0.3 per minute. Assessment and Plan Assessment and Plan (1) Sleep disturbances: Code(s): G47.9 - Sleep disorder, unspecified Status: Acute Assessment and Plan: The patient had an overall AHI of 4.4 with desaturation down to 86%. This is not consistent with sleep disordered breathing. Due to the patient's borderline test result, further evaluation is warranted. I recommend that the patient have a split study with the use of a hypnotic to ensure we obtain enough sleep data. The patient had 16 minutes of suspected atrial fibrillation. The patient has no history of atrial fibrillation in her chart. I recommend that the patient get 12 lead EKG and a Holter monitor for further evaluation. The patient's sleep history is somewhat suggestive of Restless Leg Syndrome. I recommend that the patient have a serum ferritin drawn for evaluation of iron deficiency anemia. If the patient has a serum ferritin less than 75 ng/mL, I recommend starting a daily iron supplement and a Vitamin C supplement for better absorption. If the serum ferritin is greater than 75 ng/mL, I recommend starting a dopamine agonist and titrating the dose until symptoms resolve. There are nonpharmacological methods to treat limb movements including daily exercise, stretching calf muscles before bed, avoiding excessive amounts of caffeine and alcohol, vitamin B supplementation, magnesium lotion massaged into legs before bed, and use of a weighted blanket. Data The data obtained during this sleep study is adequate for interpretation. Certification This sleep study has been reviewed by a board certified sleep medicine physician.
[2025-01-20 11:46] VITALS: BMI 23.3
== END 2025-01-06 14:21 | disposition home or self-care (01) ==
PROVIDERS: PCP Nurse Practitioner Family; Visit Provider Nurse Practitioner Family
DX: G47.30 Sleep apnea, unspecified (principal); G47.9 Sleep disorder, unspecified; I10 Essential (primary) hypertension
CPT/HCPCS: 95800

== ENCOUNTER 2025-02-01 08:11 | Outpatient (CLI) | payer OTHER, SELFPAY ==
--- NOTE | 2025-02-01 08:23 | ECG_ITS ---
Test Date: 2025-02-01 08:35:42 Measurements Intervals [place] Rate: 87 P: 13 NE: 128 QRS: 66 QRSD: 80 T: 50 QT: 353 QTc: 426 Interpretive Statements SINUS RHYTHM BASELINE ARTIFACT- I, II, III, AVR, AVL, AVF, V3-V6 NORMAL ECG No previous ECG available for comparison Electronically Signed On 02-01-2025 09:04:24 CHIEF LENDING OFFICER by Ariel Grant D.O.
--- OUTSIDE RECORDS SUMMARY | 2025-02-01 08:23 | XMS_ITS | Clinical Summary ---
Author Organization [facility] Address [address] [place] [address] Care Team Providers Care Electronics Processing Supervisor Name Role Phone Rigo Mock MD Primary Care Provider Source Comments [facility],non-owned Affiliates and Associated Physician Practices is amultiple site organization consisting of ambulatory clinics and hospital sitesin [place], [place], [place] and [place]. This disclosure is being madepursuant to the Care Everywhere program and may not contain all information available regarding this patient. Last updated 17.[employer] [facility] Allergies No known active allergies Medications * [...] on file Legal Sex Female 8:08 AM COMPUTER TECH Gender Identity Not on file Sexual Orientation Not on file Last Filed Vital Signs Vital Sign Reading Time Taken Comments Blood Pressure 115/63 01/04/2009 11:00 AM COMPUTER TECH Pulse 53 01/04/2009 11:00 AM COMPUTER TECH Temperature 37 C (98.6 F) 01/04/2009 11:00 AM COMPUTER TECH Respiratory Rate 18 01/04/2009 11:00 AM COMPUTER TECH Oxygen Saturation 100% 01/04/2009 11:00 AM COMPUTER TECH Inhaled Oxygen Concentration - - Weight 54 kg (119 lb) 01/03/2009 10:13 PM COMPUTER TECH Height 165.1 cm (5' 5) 01/03/2009 10:04 PM COMPUTER TECH Body Mass Index 19.8 01/03/2009 10:04 PM COMPUTER TECH Plan of Treatment Health Maintenance Due Date [...] DEPRESSION SCREENING 03/04/2024 COVID-19 VACCINE (1 - 2024-2 6 season) 2024 INFLUENZA VACCINE (#1) 2024 Respiratory [...] patient's age to complete this topic Insurance [facility] MEDICARE Health [facility] Address: [address] [phone] SELF PAY NO INSURANCE Member Subscriber Plan / Payer (Ef fective for All Dates) Name:Amy Perry Member ID:Not on file Relation to Subscriber:Not on file Name:MAY PERRY Subscriber ID:Not on file (Home) Address: [address] [place] [phone] Payer ID:Not on file Group ID:Not on file Type:Self Pay Address: [place], [place] Advance Directives * Full Code (Latest Code Status on File) Date Activated Date Inactivated Comments 01/03/2009 10:03 PM 01/05/2009 2:24 AM Care Teams Electronics Processing Supervisor Relationship Specialty Start Date End Date Rigo Mock MD [address] [place] [address] PCP - General 01/03/09
== END 2025-02-01 08:12 | disposition home or self-care (01) ==
LOC: ANHCARD 08:14
PROVIDERS: PCP Nurse Practitioner Family; Visit Provider Nurse Practitioner Family
DX: I48.91 Unspecified atrial fibrillation (principal)
CPT/HCPCS: 93005

== ENCOUNTER 2025-02-05 10:40 | Outpatient (CLI) | payer OTHER, SELFPAY ==
--- NOTE | 2025-02-12 16:02 | WPDHOLTEREM ---
Holter/Event Monitor Holter/Event Monitor Date of procedure: 02/05/25 Holter/Event Procedure: 3-7 Day Holter Monitor Indications: Atrial fibrillation Conclusion: 1. 3 days holter monitor on 02/05/25. 2. Predominant rhythm is sinus rhythm. HR range 63-174 bpm; average 94 bpm. 3. There are rare premature supraventricular complexes and rare supraventricular couplets. There are 2 episodes of supraventricular tachycardia with fastest at 174 bpm and longest lasting 10 beats. 4. There are rare premature ventricular complexes and rare ventricular couplets. No ventricular tachycardia. 5. No significant pauses greater than 3 seconds. 6. No symptoms available for correlation.
== END 2025-02-05 10:41 | disposition home or self-care (01) ==
PROVIDERS: PCP Nurse Practitioner Family; Visit Provider Nurse Practitioner Family
DX: I48.91 Unspecified atrial fibrillation (principal)
CPT/HCPCS: 93242